=== PATIENT | female | born 1990 | race Caucasian/White ===

== ENCOUNTER → 2019-08-15 | Outpatient (CLI) | payer OTHER ==
--- NOTE | 2019-08-15 15:13 | XR ---
EXAMINATION TYPE: XR lumbar spine 2 or 3V DATE OF EXAM: 08/15/2019 CLINICAL HISTORY: Chronic low back pain TECHNIQUE: Frontal and lateral images of the lumbar spine are obtained. COMPARISON: None FINDINGS: There are 5 lumbar type vertebral bodies identified. The lumbar spine shows satisfactory alignment without evidence of acute fracture or dislocation. Vertebral body heights and disk space he ights are within normal limits. The overlying soft tissue appears unremarkable. IMPRESSION: No acute fracture or malalignment is seen in the lumbar spine. No significant degenerati ve change on x-ray. If there is further concern MRI could evaluate for disc herniation.
== END | disposition home or self-care (01) ==
LOC: RADXRMAIN 14:38
PROVIDERS: ATTEND Family Medicine
DX: M54.5 Low back pain (principal)
CPT/HCPCS: 72100

== ENCOUNTER 2023-09-11 19:49 | Inpatient (IN) | payer OTHER ==
[2023-09-11] MEDS ORDERED: SODIUM CHLORIDE 0.9% 1,000 ML IV STA (21:19)
[2023-09-11] MEDS ORDERED: KETOROLAC 15 MG/ML 1 ML VIAL IVP STA (21:19)
[2023-09-11] MEDS ORDERED: ONDANSETRON 4 MG/2 ML VIAL IVP STA (21:19)
--- NOTE | 2023-09-11 21:24 | ED ---
Abdominal Pain HPI - General Chief Complaint: Abdominal Pain Stated Complaint: Abd pain Time Seen by Provider: 09/11/23 20:32 Source: patient Mode of arrival: ambulatory Limitations: no limitations - History of Present Illness Initial Comments: 33-year-old female with no prior abdominal surgeries presents to ED with a chief complaint of abdominal pain. Patient states she was returning from vacation today and states that she started to experience abdominal pain while she was riding in the car. Pain affects her left lower abdomen. Pain is constant n ature. Patient states since onset of pain has worsened in severity. Associated nausea no vomiting. Patient does note some vaginal bleeding however states that she is on her period and is supposed to be on her period at this time. Denies vaginal discharge. Otherwise changes in bowel habits. No chest pain or shortness of breath. No other complaints. - Related Data Allergies Allergy/AdvReac Type Severity Reaction Status Date / Time No Known Allergies Allergy Verified 09/11/23 20:21 Review of Systems ROS Statement: Those systems with pertinent positive or pertinent negative responses have been documented in the HPI. ROS Other: All systems not noted in ROS Statement are negative. Past Medical History Past Medical History: No Reported History History of Any Multi-Drug Resistant Organisms: None Reported Past Surgical History: No Surgical Hx Reported Past Psychological History: No Psychological Hx Reported Smoking Status: Current every day smoker Past Alcohol Use History: None Reported Past Drug Use History: None Reported General Exam Limitations: no limitations General appearance: alert, in no apparent distress Eye exam: Present: normal appearance Neck exam: Present: normal inspection Respiratory exam: Present: normal lung sounds bilaterally Cardiovascular Exam: Present: regular rate, normal rhythm GI/Abdominal exam: Present: soft (Left CVA tenderness to percussion. Left lower quadrant tenderness. However no rebound guarding or rigidity.), normal bowel sounds Neurological exam: Present: alert, oriented X3 Skin exam: Present: warm, dry Course Vital Signs 09/11/23 20:18 Temperature 97.8 F Pulse Rate 82 Respiratory 18 Rate Blood Pressure 112/74 O2 Sat by Pulse 99 Oximetry Medical Decision Making - Medical Decision Making Was pt. sent in by a medical professional or institution (, PA, SOLAR PV INSTALLER, urgent care, hospital, or fpc...) When possible be specific @ -No Did you speak to anyone other than the patient for history (EMS, parent, family, police, friend...)? What history was obtained from this source @ -No Did you review nursing and triage notes (agree or disagree)? Why? @ -I reviewed and agree with nursing and triage notes Were old charts reviewed (outside hosp., previous admission, EMS record, old EKG, old radiological studies, urgent care reports/EKG's, fpc records)? Report findings @ -No old charts were reviewed Differential Diagnosis (chest pain, altered mental status, abdominal pain women, abdominal pain men, vaginal bleeding, weakness, fever, dyspnea, syncope, headache, dizziness, GI bleed, back pain, seizure, CVA, palpatations, mental health, musculoskeletal)? @ -Differential Abdominal Pain Women: Appendicitis, Cholecystitis, diverticulosis, ischemic bowel, pancreatitis, hepatitis, UTI, gastroenteritis, AAA, incarcerated hernia, bowel obstruction, constipation, inflammatory bowel, hepatitis, peptic ulcer disease, splenic infarction, perforated viscus, vulvitis, ovarian torsion, PID, kidney stone, placenta abruption, this is not meant to be an all-inclusive list EKG interpreted by me (3pts min.). @ -EKG interpreted by me shows a sinus rhythm without acute ST or T-wave changes. CA 135, QRS 84, QT/QTc 376/88. X-rays interpreted by me (1pt min.). @ -None done CT interpreted by me (1pt min.). @ -CT abdomen and pelvis interpreted by me shows mild left hydronephrosis due to a 7 mm stone in the proximal left ureter just beyond the UPJ U/S interpreted by me (1pt. min.). @ -None done What testing was considered but not performed or refused? (CT, X-rays, U/S, labs)? Why? @ -None What meds were considered but not given or refused? Why? @ -None Did you discuss the management of the patient with other professionals (professionals i.e. , PA, SOLAR PV INSTALLER, lab, RT, psych nurse, oncology social work, biblical languages professor, teacher, hydrographical technical officer, caseworker)? Give summary @ -Case discussed with Dr. Mosher, who at this time recommends admission. Was smoking cessation discussed for >3mins.? @ -No Was critical care preformed (if so, how long)? @ -No Were there social determinants of health that impacted care today? How? (Homelessness, low income, unemployed, alcoholism, drug addiction, transportation, low edu. Level, literacy, decrease access to med. care, long term, rehab)? @ -No Was there de-escalation of care discussed even if they declined (Discuss DNR or withdrawal of care, Hospice)? DNR status @ -No What co-morbidities impacted this encounter? (DM, HTN, Smoking, COPD, CAD, Cancer, CVA, ARF, Chemo, Hep., AIDS, mental health diagnosis, sleep apnea, morbi d obesity)? @ -None Was patient admitted / discharged? Hospital course, mention meds given and route, prescriptions, significant lab abnormalities, going to OR and other pertinent info. @ -Admission 33-year-old female presenting with 1 day history of abdominal pain and nausea and vomiting. Patient does note history of urinary tract infection earlier in the week and was prescribed Macrobid however notes that she did not take this medication as they made her feel sick. Laboratory studies reviewed significant for an elevated white blood cell count at 22.4, neutrophils elevated at 20, chemistry panel largely unremarkable, UA does show signs of infection with positive nitrites and leukocyte esterase. CT abdomen pelvis did show a 7 mm s tone in the proximal left ureter. Due to concern for stone with elements of urinary tract infection, patient admitted for observation. At this time, patient reports pain is only a 2 out of 10 in severity. Also notes resolution of nausea. Vital signs stable, afebrile upon admission. Undiagnosed new problem with uncertain prognosis? @ [N] Drug Therapy requiring intensive monitoring for toxicity (Heparin, Nitro, Insulin, Cardizem)? @ [N] Were any procedures done? @ [N] Diagnosis/symptom? @ -Obstructive kidney stone, urinary tract infection Acute, or Chronic, or Acute on Chronic? @ -Acute Uncomplicated (without systemic symptoms) or Complicated (systemic symptoms)? @ -Uncomplicated Side effects of treatment? @ -No Exacerbation, Progression, or Severe Exacerbation? @ -No Poses a threat to life or bodily function? How? (Chest pain, [place], [place], pneumonia, PE, COPD, DKA, ARF, appy, cholecystitis, CVA, Diverticulitis, Homicidal, Suicidal, threat to staff... and all critical care pts) @ -Possibly, sepsis - Lab Data Result diagrams: 09/11/23 21:22 11/26/23 21:22 Lab Results 09/11/23 09/11/23 09/11/23 Range/Units 21:22 21:22 21:22 WBC 22.4 H (3.8-10.6) k/uL RBC 4.70 (3.80-5.40) m/uL Hgb 14.7 (11.4-16.0) gm/dL Hct 44.2 (34.0-46.0) % MCV 93.9 (80.0-100.0) fL MCH 31.3 (25.0-35.0) pg MCHC 33.3 (31.0-37.0) g/dL RDW 12.6 (11.5-15.5) % Plt Count 259 (150-450) k/uL MPV 7.6 Neutrophils % 89 % Lymphocytes % 7 % Monocytes % 3 % Eosinophils % 1 % Basophils % 0 % Neutrophils # 20.0 H (1.3-7.7) k/uL Lymphocytes # 1.5 (1.0-4.8) k/uL Monocytes # 0.7 (0-1.0) k/uL Eosinophils # 0.1 (0-0.7) k/uL Basophils # 0.0 (0-0.2) k/uL PT 11.1 (10.0-12.5) sec INR 1.0 (<1.2) APTT 28.6 (22.0-30.0) sec Sodium (137-145) mmol/L Potassium (3.5-5.1) mmol/L Chloride (98-107) mmol/L Carbon Dioxide (22-30) mmol/L Anion Gap mmol/L BUN (7-17) mg/dL Creatinine (0.52-1.04) mg/dL Est GFR (CKD-EPI)AfAm (>60 ml/min/1.73 sqM) Est GFR (CKD-EPI)NonAf (>60 ml/min/1.73 sqM) Glucose (74-99) mg/dL Plasma Lactic Acid Wale (0.7-2.0) mmol/L Calcium (8.4-10.2) mg/dL Total Bilirubin (0.2-1.3) mg/dL AST (14-36) U/L ALT (4-34) U/L Alkaline Phosphatase (38-126) U/L Troponin I (0.000-0.034) ng/mL Total Protein (6.3-8.2) g/dL Albumin (3.5-5.0) g/dL Amylase (30-110) U/L Lipase (23-300) U/L Urine Color Yellow Urine Appearance Cloudy H (Clear) Urine pH 6.5 (5.0-8.0) Ur Specific [place] 1.020 (1.001-1.035) Urine Protein Negative (Negative) Urine Glucose (UA) Negative (Negative) Urine Ketones Negative (Negative) Urine Blood Large H (Negative) Urine Nitrite Positive H (Negative) Urine Bilirubin Negative (Negative) Urine Urobilinogen <2.0 (<2.0) mg/dL Ur Leukocyte Esterase Small H (Negative) Urine RBC 170 H (0-5) /hpf Urine WBC 14 H (0-5) /hpf Ur Squamous Epith Cells 1 (0-4) /hpf Urine Bacteria Rare H (None) /hpf Urine Mucus Rare H (None) /hpf Urine HCG, Qual (Not Detectd) Blood Type Blood Type Recheck Bld Type Recheck Status Antibody Screen Spec Expiration Date 09/11/23 09/11/23 09/11/23 Range/Units 21:22 21:22 21:22 WBC (3.8-10.6) k/uL RBC (3.80-5.40) m/uL Hgb (11.4-16.0) gm/dL Hct (34.0-46.0) % MCV (80.0-100.0) fL MCH (25.0-35.0) pg MCHC (31.0-37.0) g/dL RDW (11.5-15.5) % Plt Count (150-450) k/uL MPV Neutrophils % % Lymphocytes % % Monocytes % % Eosinophils % % Basophils % % Neutrophils # (1.3-7.7) k/uL Lymphocytes # (1.0-4.8) k/uL Monocytes # (0-1.0) k/uL Eosinophils # (0-0.7) k/uL Basophils # (0-0.2) k/uL PT (10.0-12.5) sec INR (<1.2) APTT (22.0-30.0) sec Sodium 136 L (137-145) mmol/L Potassium 4.1 (3.5-5.1) mmol/L Chloride 101 (98-107) mmol/L Carbon Dioxide 22 (22-30) mmol/L Anion Gap 13 mmol/L BUN 15 (7-17) mg/dL Creatinine 0.73 (0.52-1.04) mg/dL Est GFR (CKD-EPI)AfAm >90 (>60 ml/min/1.73 sqM) Est GFR (CKD-EPI)NonAf >90 (>60 ml/min/1.73 sqM) Glucose 112 H (74-99) mg/dL Plasma Lactic Acid Wale 1.0 (0.7-2.0) mmol/L Calcium 9.7 (8.4-10.2) mg/dL Total Bilirubin 0.9 (0.2-1.3) mg/dL AST 29 (14-36) U/L ALT 19 (4-34) U/L Alkaline Phosphatase 68 (38-126) U/L Troponin I (0.000-0.034) ng/mL Total Protein 7.9 (6.3-8.2) g/dL Albumin 4.5 (3.5-5.0) g/dL Amylase 77 (30-110) U/L Lipase 145 (23-300) U/L Urine Color Urine Appearance (Clear) Urine pH (5.0-8.0) Ur Specific [place] (1.001-1.035) Urine Protein (Negative) Urine Glucose (UA) (Negative) Urine Ketones (Negative) Urine Blood (Negative) Urine Nitrite (Negative) Urine Bilirubin (Negative) Urine Urobilinogen (<2.0) mg/dL Ur Leukocyte Esterase (Negative) Urine RBC (0-5) /hpf Urine WBC (0-5) /hpf Ur Squamous Epith Cells (0-4) /hpf Urine Bacteria (None) /hpf Urine Mucus (None) /hpf Urine HCG, Qual Not Detected (Not Detectd) Blood Type Blood Type Recheck Bld Type Recheck Status Antibody Screen Spec Expiration Date 09/11/23 09/11/23 Range/Units 21:22 21:22 WBC (3.8-10.6) k/uL RBC (3.80-5.40) m/uL Hgb (11.4-16.0) gm/dL Hct (34.0-46.0) % MCV (80.0-100.0) fL MCH (25.0-35.0) pg MCHC (31.0-37.0) g/dL RDW (11.5-15.5) % Plt Count (150-450) k/uL MPV Neutrophils % % Lymphocytes % % Monocytes % % Eosinophils % % Basophils % % Neutrophils # (1.3-7.7) k/uL Lymphocytes # (1.0-4.8) k/uL Monocytes # (0-1.0) k/uL Eosinophils # (0-0.7) k/uL Basophils # (0-0.2) k/uL PT (10.0-12.5) sec INR (<1.2) APTT (22.0-30.0) sec Sodium (137-145) mmol/L Potassium (3.5-5.1) mmol/L Chloride (98-107) mmol/L Carbon Dioxide (22-30) mmol/L Anion Gap mmol/L BUN (7-17) mg/dL Creatinine (0.52-1.04) mg/dL Est GFR (CKD-EPI)AfAm (>60 ml/min/1.73 sqM) Est GFR (CKD-EPI)NonAf (>60 ml/min/1.73 sqM) Glucose (74-99) mg/dL Plasma Lactic Acid Wale (0.7-2.0) mmol/L Calcium (8.4-10.2) mg/dL Total Bilirubin (0.2-1.3) mg/dL AST (14-36) U/L ALT (4-34) U/L Alkaline Phosphatase (38-126) U/L Troponin I <0.012 (0.000-0.034) ng/mL Total Protein (6.3-8.2) g/dL Albumin (3.5-5.0) g/dL Amylase (30-110) U/L Lipase (23-300) U/L Urine Color Urine Appearance (Clear) Urine pH (5.0-8.0) Ur Specific [place] (1.001-1.035) Urine Protein (Negative) Urine Glucose (UA) (Negative) Urine Ketones (Negative) Urine Blood (Negative) Urine Nitrite (Negative) Urine Bilirubin (Negative) Urine Urobilinogen (<2.0) mg/dL Ur Leukocyte Esterase (Negative) Urine RBC (0-5) /hpf Urine WBC (0-5) /hpf Ur Squamous Epith Cells (0-4) /hpf Urine Bacteria (None) /hpf Urine Mucus (None) /hpf Urine HCG, Qual (Not Detectd) Blood Type O Positive Blood Type Recheck O Pos Bld Type Recheck Status No Antibody Screen NEGATIVE Spec Expiration Date 09/14/20232321 - EKG Data EKG Comments: G shows a normal sinus rhythm at [address] or T-wave changes. CA 135, QRS 84, QT/QTc 376/388. Disposition Clinical Impression: Kidney stone Disposition: ADMITTED IP TO THIS [facility] Condition: Fair Referrals: Ricardo June MD [Primary Care Provider] - 1-2 days
[2023-09-11 21:43] LABS: Basophils % (A) 0 %; Eosinophils # (A) 0.1 k/uL (0-0.7); Eosinophils % (A) 1 %; HCT 44.2 % (34.0-46.0); HGB 14.7 gm/dL (11.4-16.0); Lymphocytes # (A) 1.5 k/uL (1.0-4.8); Lymphocytes % (A) 7 %; MCH 31.3 pg (25.0-35.0); MCHC 33.3 g/dL (31.0-37.0); MCV 93.9 fL (80.0-100.0); Mean Platelet Volume 7.6; Monocytes # (A) 0.7 k/uL (0-1.0); Monocytes % (A) 3 %; Neutrophils % (A) 89 %; Platelet Count 259 k/uL (150-450); RDW 12.6 % (11.5-15.5); WBC 22.4 k/uL (3.8-10.6)
[2023-09-11 22:03] LABS: Partial Thromboplastin Time 28.6 sec (22.0-30.0); Prothrombin Time 11.1 sec (10.0-12.5)
[2023-09-11 22:08] LABS: ALT 19 U/L (4-34); AST 29 U/L (14-36); African American GFR (CKD) >90 (>60 ml/min/1.73 sqM); Albumin 4.5 g/dL (3.5-5.0); Alkaline Phosphatase 68 U/L (38-126); Amylase 77 U/L (30-110); Anion Gap 13 mmol/L; Blood Urea Nitrogen 15 mg/dL (7-17); Calcium 9.7 mg/dL (8.4-10.2); Carbon Dioxide 22 mmol/L (22-30); Chloride 101 mmol/L (98-107); Glucose 112 mg/dL (74-99); Lipase 145 U/L (23-300); Non-African American GFR(CKD) >90 (>60 ml/min/1.73 sqM); Potassium 4.1 mmol/L (3.5-5.1); Sodium 136 mmol/L (137-145); Total Bilirubin 0.9 mg/dL (0.2-1.3); Total Protein 7.9 g/dL (6.3-8.2)
[2023-09-11 22:14] LABS: Appearance,Urine Cloudy (Clear); Bacteria,Urine Rare /hpf; Bilirubin,Urine Negative (Negative); Blood,Urine Large (Negative); Color,Urine Yellow; Glucose,Urine (UA) Negative (Negative); Ketones,Urine Negative (Negative); Leukocyte Esterase,Urine Small (Negative); Mucus,Urine Rare /hpf; Nitrite,Urine Positive (Negative); PH, Urine 6.5 (5.0-8.0); Protein,Urine Negative (Negative); RBC,Urine 170 /hpf (0-5); Squamous Epithelial Cell,Urine 1 /hpf (0-4); Urobilinogen,Urine <2.0 mg/dL (<2.0); WBC,Urine 14 /hpf (0-5)
--- NOTE | 2023-09-11 23:09 | CT ---
EXAM: CT Abdomen and Pelvis Without Intravenous Contrast CLINICAL HISTORY: CT Reason: LLQ pain left flank pain TECHNIQUE: Axial computed tomography images of the abdomen and pelvis without intravenous contrast. CTDI is 4.6 mGy and DLP is 244.4 mGy-cm. This CT exam was performed using one or more of the following dose reduction techniques: automated exposure control, adjustment of the mA and/or kV according to patient size, and/or use of iterative reconstruction technique. COMPARISON: No relevant prior studies available. FINDINGS: Lung bases: Unremarkable. No mass. No consolidation. ABDOMEN: Liver: The liver is enlarged measuring 19.2 cm craniocaudad. No focal liver lesion is seen. Gallbladder and bile ducts: Unremarkable. No calcified stones. No ductal dilation. Pancreas: Unremarkable. No ductal dilation. Spleen: Unremarkable. No splenomegaly. Adrenals: Unremarkable. No mass. Kidneys and ureters: Mild left hydronephrosis due to a 7 mm calculus in the proximal left ureter, just beyond the ureteropelvic junction. There are several 3 mm calculi in the lower pole the left kidney. Stomach and bowel: Unremarkable. No obstruction. No mucosal thickening. PELVIS: Appendix: The appendix is normal. Bowel loops are nondilated. No acute inflammatory changes are seen involving the bowel. Bladder: The urinary bladder is empty but otherwise unremarkable. No stones. Reproductive: There is a tampon in the vagina. ABDOMEN and PELVIS: Intraperitoneal space: Unremarkable. No free air. No significant fluid collection. Bones/joints: No acute fracture. No dislocation. Soft tissues: Unremarkable. Vasculature: Unremarkable. No abdominal aortic aneurysm. Lymph nodes: Unremarkable. No enlarged lymph nodes. IMPRESSION: 1. Mild left hydronephrosis due to a 7 mm calculus in the proximal left ureter, just beyond the ureteropelvic junction. 2. The appendix is normal. Bowel loops are nondilated. No acute inflammatory changes are seen involving the bowel.
[2023-09-11] MEDS ORDERED: HYDROmorphone 0.5 MG/0.5 ML SYRINGE IVP PRN (23:54)
[2023-09-11] MEDS ORDERED: HYDROmorphone 1 MG/ML 1 ML SYRINGE IVP PRN (23:54)
[2023-09-11] MEDS ORDERED: NALOXONE 0.4 MG/ML 1 ML VIAL IV PRN (23:54)
[2023-09-12] MEDS: NICOTINE 21MG/24HR PATCH TRANSDERM SCH ×2 (00:23→10:52)
[2023-09-12] MEDS: SODIUM CHLORIDE 0.9% 1,000 ML IV SCH ×2 (01:09→17:30)
--- NOTE | 2023-09-12 07:56 | P.GSHP ---
History of Present Illness H&P Date: 09/12/23 Chief Complaint: Left-sided abdominal pain The patient is a 33-year-old white female with no prior history of urolithiasis. She experienced acute onset of left lower quadrant abdominal pain yesterday, associated with nausea and vomiting. She presented to the ER and underwent evaluation, revealing left hydronephrosis due to a 7 mm left left ureteral calculus just distal to the UPJ. - Constitutional Constitutional: Denies chills, Denies fever - Cardiovascular Cardiovascular: Denies chest pain - Respiratory Respiratory: Denies dyspnea - Gastrointestinal Gastrointestinal: Reports nausea, Reports vomiting - Genitourinary (Female) Genitourinary: Reports flank pain, Reports kidney stones Past Medical History Past Medical History: No Reported History History of Any Multi-Drug Resistant Organisms: None Reported Past Surgical History: No Surgical Hx Reported Past Psychological History: No Psychological Hx Reported Smoking Status: Current every day smoker Past Alcohol Use History: None Reported Past Drug Use History: None Reported Medications and Allergies Allergies Allergy/AdvReac Type Severity Reaction Status Date / Time No Known Allergies Allergy Verified 09/12/23 07:55 Surgical - Exam Vital Signs Temp Pulse Resp BP Pulse Ox 97.8 F 82 18 112/74 99 09/11/23 20:18 09/11/23 20:18 09/11/23 20:18 09/11/23 20:18 09/11/23 20:18 - General well developed, well nourished, moderate distress - Neck no masses, trachea midline - Respiratory normal respiratory effort - Abdomen Abdomen: soft, tender (left-sided tenderness), no guarding, no rigid, no rebound - Psychiatric oriented to time, oriented to person, oriented to place, speech is normal, memory intact Results - Labs 09/11/23 21:22 09/11/23 21:22 Abnormal Lab Results - Last 24 Hours (Table) 09/11/23 09/11/23 09/11/23 Range/Units 21:22 21:22 21:22 WBC 22.4 H (3.8-10.6) k/uL Neutrophils # 20.0 H (1.3-7.7) k/uL Sodium 136 L (137-145) mmol/L Glucose 112 H (74-99) mg/dL Urine Appearance Cloudy H (Clear) Urine Blood Large H (Negative) Urine Nitrite Positive H (Negative) Ur Leukocyte Esterase Small H (Negative) Urine RBC 170 H (0-5) /hpf Urine WBC 14 H (0-5) /hpf Urine Bacteria Rare H (None) /hpf Urine Mucus Rare H (None) /hpf Diabetes panel 09/11/23 Range/Units 21:22 Sodium 136 L (137-145) mmol/L Potassium 4.1 (3.5-5.1) mmol/L Chloride 101 (98-107) mmol/L Carbon Dioxide 22 (22-30) mmol/L BUN 15 (7-17) mg/dL Creatinine 0.73 (0.52-1.04) mg/dL Glucose 112 H (74-99) mg/dL Calcium 9.7 (8.4-10.2) mg/dL AST 29 (14-36) U/L ALT 19 (4-34) U/L Alkaline Phosphatase 68 (38-126) U/L Total Protein 7.9 (6.3-8.2) g/dL Albumin 4.5 (3.5-5.0) g/dL Calcium panel 09/11/23 Range/Units 21:22 Calcium 9.7 (8.4-10.2) mg/dL Albumin 4.5 (3.5-5.0) g/dL Pituitary panel 09/11/23 Range/Units 21:22 Sodium 136 L (137-145) mmol/L Potassium 4.1 (3.5-5.1) mmol/L Chloride 101 (98-107) mmol/L Carbon Dioxide 22 (22-30) mmol/L BUN 15 (7-17) mg/dL Creatinine 0.73 (0.52-1.04) mg/dL Glucose 112 H (74-99) mg/dL Calcium 9.7 (8.4-10.2) mg/dL Adrenal panel 09/11/23 Range/Units 21:22 Sodium 136 L (137-145) mmol/L Potassium 4.1 (3.5-5.1) mmol/L Chloride 101 (98-107) mmol/L Carbon Dioxide 22 (22-30) mmol/L BUN 15 (7-17) mg/dL Creatinine 0.73 (0.52-1.04) mg/dL Glucose 112 H (74-99) mg/dL Calcium 9.7 (8.4-10.2) mg/dL Total Bilirubin 0.9 (0.2-1.3) mg/dL AST 29 (14-36) U/L ALT 19 (4-34) U/L Alkaline Phosphatase 68 (38-126) U/L Total Protein 7.9 (6.3-8.2) g/dL Albumin 4.5 (3.5-5.0) g/dL - Imaging CT scan - abdomen: report reviewed, image reviewed Assessment and Plan Assessment: The patient has significant pain despite analgesics. Urinalysis is suggestive of a possible UTI, and leukocytosis is consistent with this. A urine culture was sent, and she has received Rocephin. (1) Calculus of ureter Current Visit: Yes Status: Acute Code(s): N20.1 - CALCULUS OF URETER SNOMED Code(s): 13494244 (2) Hydronephrosis with renal and ureteral calculous obstruction Current Visit: Yes Status: Acute Code(s): N13.2 - HYDRONEPHROSIS WITH RENAL AND URETERAL CALCULOUS OBSTRUCTION SNOMED Code(s): 503550080 Plan: I had a lengthy discussion with the patient regarding her left proximal ureteral calculus and possible associated UTI. I explained to her that the calculus was rather unlikely to pass, and that placement of a ureteral stent would be desired to relieve ureteral obstruction. She would then undergo a secondary elective p rocedure to remove the calculus, either ESWL or ureteroscopy with laser lithotripsy. The rationale for all of this was discussed in detail, as were potential risks associated with the procedures. She will undergo left ureteral stent insertion later today, and then be scheduled for elective ureteroscopy with laser lithotripsy. Time with Patient: Greater than 30
[2023-09-12] MEDS ORDERED: LACTATED RINGERS 1,000 ML IV ONE ×3 (11:50→13:48)
[2023-09-12] MEDS ORDERED: ONDANSETRON 4 MG/2 ML VIAL ONE (12:25)
[2023-09-12] MEDS ORDERED: diphenhydrAMINE 50 MG/ML 1 ML VIAL ONE (12:25)
[2023-09-12] MEDS ORDERED: ONDANSETRON 4 MG/2 ML VIAL IVP ONE (12:31)
[2023-09-12] MEDS ORDERED: DEXAMETHASONE SOD PHOSPHATE 4 MG/ML 1 ML VIAL IVP ONE (12:31)
[2023-09-12] MEDS ORDERED: diphenhydrAMINE 50 MG/ML 1 ML VIAL IVP ONE (12:31)
[2023-09-12] MEDS ORDERED: KETOROLAC 15 MG/ML 1 ML VIAL ONE (12:42)
[2023-09-12] MEDS ORDERED: PROPOFOL 10 MG/ML 20 ML VIAL IV ONE (12:42)
[2023-09-12] MEDS ORDERED: PHENYLEPHRINE-0.9% NACL SYG 1,000 MCG/10 ML SYRINGE ONE (12:42)
[2023-09-12] MEDS ORDERED: LIDOCAINE 1% INJ 10MG/ML (20 ML MDV) ONE (12:42)
[2023-09-12] MEDS ORDERED: fentaNYL (PF) 50 MCG/ML 2 ML AMP ONE (12:42)
[2023-09-12] MEDS ORDERED: KETOROLAC 15 MG/ML 1 ML VIAL IVP PRN (13:33)
--- NOTE | 2023-09-12 14:06 | FL ---
Intraoperative/procedural fluoroscopic services were provided. Total fluoroscopy time is 1 minute 18 seconds with a total of 4 submitted images to PACS. Please see the operative/procedural note for furt her details. DAP: 3.8804 Gycm2
[2023-09-12] MEDS ORDERED: GENTAMICIN PER PHARMACY MISCELLANE PRN (14:58)
--- NOTE | 2023-09-12 15:54 | P.OP ---
Date of Procedure: 09/12/23 Preoperative Diagnosis: Left hydronephrosis secondary to left proximal ureteral calculus Postoperative Diagnosis: Same Procedure(s) Performed: Cystoscopy, left ureteral stent insertion Anesthesia: CLARENCEA Surgeon: Dav Mosher Estimated Blood Loss (ml): 0 IV fluids (ml): 600 Pathology: none sent Condition: stable Disposition: PACU Indications for Procedure: The patient is a 33-year-old white female with no prior history of urolithiasis. She experienced acute onset of left lower quadrant abdominal pain yesterday, associated with nausea and vomiting. She presented to the ER and underwent evaluation, revealing left hydronephrosis due to a 7 mm left left ureteral calculus just distal to the UPJ. Operative Findings: Obstructing radio-opaque left proximal ureteral calculus. Successful left ureteral stent insertion. Drainage of purulent urine from left renal pelvis (sent for C & S) Description of Procedure: The patient was taken to the operating room and placed in the dorsolithotomy position, with legs supported in Abdullahi stirrups. The external genitalia was prepped and draped sterilely. The 30 lens was used to introduce the 22-Egyptian Stortz cystoscopic sheath through the urethra and into the bladder under direct vision. The bladder was examined in its entirety. Both ureteral orifices were of normal anatomic location and configuration. No tumors or foreign bodies were seen. A 0.035 inch Glidewire was passed through the cystoscope. The left ureteral orifice was cannulated, and the Glidewire was slowly advanced up to the calculus, which was radio opaque and seen within the left proximal ureter. With some manipulation, it was possible to advance the tip of the Glidewire beyond the calculus and into the left renal pelvis, where it coiled. A 22 cm, 6-Egyptian double-J ureteral stent was placed over the wire. Proper stent positioning was verified fluoroscopically and endoscopically. Cloudy urine drained through the stent. With the beak of the cystoscope immediately adjacent to the stent, and urine was collected and sent for culture and sensitivity. The bladder was emptied and the cystoscope removed. The patient tolerated the procedure well was taken to the recovery room in stable condition.
[2023-09-12] MEDS ORDERED: GENTAMICIN 220 MG in SODIUM CHLORIDE 0.9% 100 ML IVPB SCH (16:00)
--- NOTE | 2023-09-12 16:00 | P.CNPUL ---
History of Present Illness Consult date: 09/12/23 Requesting physician: Dav Mosher Reason for consult: other (Critical care management) Chief complaint: Abdominal pain, left lower quadrant History of present illness: This is a very pleasant 33-year-old female patient with no significant medical history. She does have chronic and ongoing tobacco dependence. [place] developed abdominal pain. It was mostly in the left lower quadrant. It was constant in nature. She did have nausea but no vomiting. She presented here to the emergency room for the same. White count 22.4. Hemoglobin 14.7. Sodium 136. Potassium 4.1. BUN 15. Creatinine 0.7. Amylase 77. Lipase 145. Urinalysis was cloudy with large amount of blood and positive nitrates with my WBCs. Urine hCG was negative. Computed tomography scan of the abdomen and pelvis revealed a mild left hydronephrosis due to a 7 mm calculus in the proximal left ureter just be on the ureteropelvic junction. No other significant findings. Today she had undergone a cystoscopy with a left ureteral stent placement. While in phase I of recovery she developed tachycardia and a fever of 101. She is also hypotensive 80s over 40s. She is seen in consultation in the recovery room. She is currently awake and alert in no acute distress. She is maintaining good O2 saturations in the mid 90s on room air. She is feeling weak. She was given ceftriaxone last evening. She is currently receiving a second liter of fluid resuscitation. She has 0.9 normal saline at a 75 ML's per hour. Review of Systems REVIEW OF SYSTEMS: CONSTITUTIONAL: Denies any recent significant weight loss or weight gain. EYES: Denies change in vision. EARS, NOSE, MOUTH, THROAT: Denies headaches, denies sore throat. CARDIOVASCULAR: Denies chest pain, palpitations or syncopal episodes. RESPIRATORY: Denies shortness of breath, cough, congestion or hemoptysis. GASTROINTESTINAL: Positive for left lower quadrant abdominal pain GENITOURINARY: Denies hematuria, denies infections. MUSKULOSKELETAL: Denies pain, denies swelling. INTEGUMENTARY: Denies rash, denies eczema. NEUROLOGICAL: Denies recent memory loss, no recent seizure activity. PSYCHIATRIC: Denies anxiety, denies depression. HEMATOLOGIC/LYMPHATIC: Denies anemia, denies enlarged lymph nodes. Past Medical History Past Medical History: No Reported History History of Any Multi-Drug Resistant Organisms: None Reported Past Surgical History: No Surgical Hx Reported Past Psychological History: No Psychological Hx Reported Smoking Status: Current every day smoker Past Alcohol Use History: None Reported Past Drug Use History: None Reported Medications and Allergies Home Medications Medication Instructions Recorded Confirmed Type Dextroamphetamine/Amphetamine 20 mg PO DAILY 09/12/23 09/12/23 History [Adderall Xr 20 mg Capsule] Allergies Allergy/AdvReac Type Severity Reaction Status Date / Time No Known Allergies Allergy Verified 09/12/23 07:55 Physical Exam Vitals: Vital Signs Temp Pulse Pulse Pulse Resp BP BP 09/12/23 15:15 108 H 16 84/51 09/12/23 15:00 104 H 16 85/52 09/12/23 14:50 101 F H 109 H 16 80/49 09/12/23 14:31 105 H 16 81/52 09/12/23 14:16 98 16 76/50 09/12/23 14:03 97 16 77/53 09/12/23 13:47 92 16 80/52 09/12/23 13:30 100.7 F H 100 16 81/43 09/12/23 11:42 99.8 F H 111 H 18 114/67 09/12/23 11:14 98.7 F 85 16 101/63 09/12/23 10:40 70 16 98/50 09/12/23 08:01 76 16 97/46 09/12/23 02:51 94 19 112/64 09/11/23 20:18 97.8 F 82 18 112/74 Pulse Ox 09/12/23 15:15 96 09/12/23 15:00 96 09/12/23 14:50 96 09/12/23 14:31 92 L 09/12/23 14:16 94 L 09/12/23 14:03 98 09/12/23 13:47 100 09/12/23 13:30 100 09/12/23 11:42 98 09/12/23 11:14 99 09/12/23 10:40 99 09/12/23 08:01 09/12/23 02:51 98 09/11/23 20:18 99 Intake and Output 09/12/23 09/12/23 09/12/23 06:59 14:59 22:59 Intake Total 975 Balance 975 Intake: IV 975 Other: Weight 45.813 kg 45.813 kg GENERAL EXAM: Alert, weak 33-year-old female, thin, on room air, fairly comfortable in no apparent distress. HEAD: Normocephalic. EYES: Normal reaction of pupils, equal size. NOSE: Clear with pink turbinates. THROAT: No erythema or exudates. NECK: No masses, no JVD. CHEST: No chest wall deformity. LUNGS: Equal air entry with no crackles, wheeze, rhonchi or dullness. CVS: S1 and S2 normal with no audible murmur, regular rhythm. ABDOMEN: No hepatosplenomegaly, normal bowel sounds, no guarding or rigidity. SPINE: No scoliosis or deformity SKIN: No rashes CENTRAL NERVOUS SYSTEM: No focal deficits, tone is normal in all 4 extremities. EXTREMITIES: There is no peripheral edema. No clubbing, no cyanosis. Peripheral pulses are intact. Results - Laboratory Findings CBC and BMP: 09/11/23 21:22 09/11/23 21:22 PT/INR, D-dimer PT 11.1 sec (10.0-12.5) 09/11/23 21:22 INR 1.0 (<1.2) 09/11/23 21:22 Abnormal lab findings: Abnormal Labs 09/11/23 09/11/23 09/11/23 21:22 21:22 21:22 WBC 22.4 H Neutrophils # 20.0 H Sodium 136 L Glucose 112 H Urine Appearance Cloudy H Urine Blood Large H Urine Nitrite Positive H Ur Leukocyte Esterase Small H Urine RBC 170 H Urine WBC 14 H Urine Bacteria Rare H Urine Mucus Rare H Assessment and Plan Assessment: Acute left lower quadrant pain secondary to a 7 mm renal calculus with mild hydronephrosis. Status post cystoscopy and stent placement today 09/12/2023 Urinary tract infection secondary to above Sepsis with hypotension secondary to above Chronic and ongoing tobacco dependence Plan: The patient was seen and evaluated Computed tomography scan of the abdomen, labs and medications reviewed Continue with fluid resuscitation Normal saline at 130 ML's per hour Continue gentamicin and ceftriaxone Educated regarding the importance of smoking cessation NicoDerm patch will be offered Monitor closely in the intensive care unit We will continue to follow and make further recommendations based on her c linical status I have personally seen and examined the patient, performed the documentation and the assessment and plan as written. Number of minutes spent on the visit: 20.
[2023-09-12 17:27] LABS: Glucose,Whole Blood 128 mg/dL (70-110)
[2023-09-12] MEDS ORDERED: SODIUM CHLORIDE 0.9% 1,000 ML IV ONE (18:20)
[2023-09-12] MEDS: NOREPINEPHRINE 4 MG in SODIUM CHLORIDE 0.9% 250 ML IV SCH (19:05)
[2023-09-12 20:17] LABS: ALT 16 U/L (4-34); AST 25 U/L (14-36); African American GFR (CKD) 81 (>60 ml/min/1.73 sqM); Albumin 2.2 g/dL (3.5-5.0); Alkaline Phosphatase 45 U/L (38-126); Anion Gap 4 mmol/L; Blood Urea Nitrogen 13 mg/dL (7-17); Calcium 7.3 mg/dL (8.4-10.2); Carbon Dioxide 20 mmol/L (22-30); Chloride 109 mmol/L (98-107); Glucose 113 mg/dL (74-99); Non-African American GFR(CKD) 70 (>60 ml/min/1.73 sqM); Potassium 3.7 mmol/L (3.5-5.1); Sodium 133 mmol/L (137-145); Total Bilirubin 0.9 mg/dL (0.2-1.3); Total Protein 4.5 g/dL (6.3-8.2)
[2023-09-12 20:25] LABS: HCT 35.5 % (34.0-46.0); HGB 11.8 gm/dL (11.4-16.0); MCH 31.5 pg (25.0-35.0); MCHC 33.2 g/dL (31.0-37.0); MCV 94.9 fL (80.0-100.0); Mean Platelet Volume 7.9; Platelet Count 154 k/uL (150-450); RBC 3.74 m/uL (3.80-5.40); RDW 12.9 % (11.5-15.5); WBC 30.7 k/uL (3.8-10.6)
[2023-09-12] MEDS ORDERED: POTASSIUM CHLORIDE ER 20 MEQ TAB.ER PO SCH (22:00)
[2023-09-13 04:26] LABS: Basophils # (A) 0.1 k/uL (0-0.2); Basophils % (A) 0 %; Eosinophils # (A) 0.2 k/uL (0-0.7); Eosinophils % (A) 0 %; HCT 35.9 % (34.0-46.0); Lymphocytes # (A) 1.5 k/uL (1.0-4.8); Lymphocytes % (A) 3 %; MCH 31.7 pg (25.0-35.0); MCHC 33.4 g/dL (31.0-37.0); MCV 94.8 fL (80.0-100.0); Mean Platelet Volume 8.3; Monocytes # (A) 1.6 k/uL (0-1.0); Monocytes % (A) 4 %; Neutrophils # (A) 40.3 k/uL (1.3-7.7); Neutrophils % (A) 92 %; Platelet Count 180 k/uL (150-450); RBC 3.79 m/uL (3.80-5.40); RDW 13.1 % (11.5-15.5); WBC 43.8 k/uL (3.8-10.6)
[2023-09-13 04:42] LABS: African American GFR (CKD) 77 (>60 ml/min/1.73 sqM); Anion Gap 7 mmol/L; Blood Urea Nitrogen 14 mg/dL (7-17); Calcium 7.5 mg/dL (8.4-10.2); Carbon Dioxide 19 mmol/L (22-30); Chloride 110 mmol/L (98-107); Glucose 111 mg/dL (74-99); Magnesium 1.3 mg/dL (1.6-2.3); Non-African American GFR(CKD) 67 (>60 ml/min/1.73 sqM); Potassium 4.1 mmol/L (3.5-5.1); Sodium 136 mmol/L (137-145)
[2023-09-13] MEDS: SODIUM CHLORIDE 0.9% 1,000 ML IV SCH ×4 (05:08→22:07)
[2023-09-13] MEDS: NOREPINEPHRINE 4 MG in SODIUM CHLORIDE 0.9% 250 ML IV SCH ×2 (05:58→19:05)
[2023-09-13] MEDS: MAGNESIUM SULFATE-D5W PMX 1 GM in DEXTROSE/WATER 1 100ML.BAG IVPB SCH ×4 (05:58→14:07)
[2023-09-13] MEDS ORDERED: Magnesium Replacement Protocol 1 EACH MISC MISCELLANE PRN (06:04)
[2023-09-13] MEDS: ACETAMINOPHEN TAB 325 MG TAB PO PRN (07:20)
[2023-09-13] MEDS: PANTOPRAZOLE 40 MG/10 ML VIAL IV SCH (10:16)
[2023-09-13] MEDS: NICOTINE 21MG/24HR PATCH TRANSDERM SCH (10:16)
--- NOTE | 2023-09-13 11:05 | P.PN ---
Subjective Progress Note Date: 09/13/23 This is a very pleasant 33-year-old female patient with no significant medical history. She does have chronic and ongoing tobacco dependence. Yes[place] when she developed abdominal pain. It was mostly in the left lower quadrant. It was constant in nature. She did have nausea but no vomiting. She presented here to the emergency room for the same. White count 22.4. Hemoglobin 14.7. Sodium 136. Potassium 4.1. BUN 15. Creatinine 0.7. Amylase 77. Lipase 145. Urinalysis was cloudy with large amount of blood and positive nitrates with my WBCs. Urine hCG was negative. Computed tomography scan of the abdomen and pelvis revealed a mild left hydronep hrosis due to a 7 mm calculus in the proximal left ureter just be on the ureteropelvic junction. No other significant findings. Today she had undergone a cystoscopy with a left ureteral stent placement. While in phase I of recovery she developed tachycardia and a fever of 101. She is also hypotensive 80s over 40s. She is seen in consultation in the recovery room. She is currently awake and alert in no acute distress. She is maintaining good O2 saturations in the mid 90s on room air. She is feeling weak. She was given ceftriaxone last evening. She is currently receiving a second liter of fluid resuscitation. She has 0.9 normal saline at a 75 ML's per hour. The patient is seen today 09/13/2023 in follow-up in the intensive care unit. She is currently resting in bed. Awake, alert. Maintaining O2 saturations in the mid 90s on room air. Currently afebrile. She is requiring norepinephrine at 7 mcg/m currently. She received 3 L of fluid resuscitation. Currently on 0.9 normal saline at 130 ML's per hour. Urine and blood cultures are positive for gram-negative bacilli. White count 43.8. Hemoglobin 12.0. Platelets 180. Sodium 136. Potassium 4.1. Chloride 110. Bicarb 19. BUN 14. Creatinine 1.10. Glucose 111. Serum cortisol level 18. Gentamicin level 3.5. She is currently on ceftriaxone. NicoDerm patch in place. Objective - Vital Signs Vital signs: Vital Signs Temp 99.5 F 09/13/23 08:00 Pulse 73 09/13/23 10:00 Resp 19 09/13/23 10:00 BP 94/61 09/13/23 10:00 Pulse Ox 95 09/13/23 10:00 FiO2 Intake & Output 09/12/23 09/13/23 09/13/23 18:59 06:59 18:59 Intake Total 1205 2733.619 629.565 Output Total 600 0 Balance 1205 2133.619 629.565 Weight 45.813 kg 52.8 kg Intake: IV 1205 2480 590 Magnesium Sulfate-D5w Pmx 200 1 gm In Dextrose/Water 1 100ml.bag @ 100 mls/hr IVPB Q1H [facility] Rx#: [id number] Sodium Chloride 0.9% 1, 130 2430 390 000 ml @ 130 mls/hr IV . Q7H42M [facility] Rx#:[id number] cefTRIAXone 1 gm In 50 Sodium Chloride 0.9% 50 ml @ 100 mls/hr IVPB Q12HR [facility] Rx#:[id number] Intake, IV Titration 253.619 39.565 Amount Norepinephrine 4 mg In 253.619 39.565 Sodium Chloride 0.9% 250 ml @ 0.03 MCG/KG/MIN 5. 236 mls/hr IV .Q24H [facility] Rx#:[id number] Output: Urine 600 0 Other: Voiding Method Toilet Bedside Commode Bedside Commode # Voids 0 0 - Exam GENERAL EXAM: Alert, weak 33-year-old female, on room air, comfortable in no apparent distress. HEAD: Normocephalic. EYES: Normal reaction of pupils, equal size. NOSE: Clear with pink turbinates. THROAT: No erythema or exudates. NECK: No masses, no JVD. CHEST: No chest wall deformity. LUNGS: Equal air entry with no crackles, wheeze, rhonchi or dullness. CVS: S1 and S2 normal with no audible murmur, regular rhythm. ABDOMEN: No hepatosplenomegaly, normal bowel sounds, no guarding or rigidity. SPINE: No scoliosis or deformity SKIN: No rashes CENTRAL NERVOUS SYSTEM: No focal deficits, tone is normal in all 4 extremities. EXTREMITIES: There is no peripheral edema. No clubbing, no cyanosis. Peripheral pulses are intact. - Labs CBC & Chem 7: 09/13/23 04:04 09/13/23 04:04 Labs: Abnormal Lab Results - Last 24 Hours (Table) 09/12/23 09/12/23 09/12/23 Range/Units 17:26 18:23 19:52 WBC 30.7 H (3.8-10.6) k/uL RBC 3.74 L (3.80-5.40) m/uL Neutrophils # (1.3-7.7) k/uL Monocytes # (0-1.0) k/uL Sodium (137-145) mmol/L Chloride (98-107) mmol/L Carbon Dioxide (22-30) mmol/L Creatinine (0.52-1.04) mg/dL Glucose (74-99) mg/dL POC Glucose (mg/dL) 128 H (70-110) mg/dL Plasma Lactic Acid Wale 2.3 H* (0.7-2.0) mmol/L Calcium (8.4-10.2) mg/dL Magnesium (1.6-2.3) mg/dL Total Protein (6.3-8.2) g/dL Albumin (3.5-5.0) g/dL 09/12/23 09/12/23 09/13/23 Range/Units 19:52 21:47 00:52 WBC (3.8-10.6) k/uL RBC (3.80-5.40) m/uL Neutrophils # (1.3-7.7) k/uL Monocytes # (0-1.0) k/uL Sodium 133 L (137-145) mmol/L Chloride 109 H (98-107) mmol/L Carbon Dioxide 20 L (22-30) mmol/L Creatinine 1.05 H (0.52-1.04) mg/dL Glucose 113 H (74-99) mg/dL POC Glucose (mg/dL) (70-110) mg/dL Plasma Lactic Acid Wale 2.3 H* 2.1 H* (0.7-2.0) mmol/L Calcium 7.3 L (8.4-10.2) mg/dL Magnesium (1.6-2.3) mg/dL Total Protein 4.5 L (6.3-8.2) g/dL Albumin 2.2 L (3.5-5.0) g/dL 09/13/23 09/13/23 Range/Units 04:04 04:04 WBC 43.8 H (3.8-10.6) k/uL RBC 3.79 L (3.80-5.40) m/uL Neutrophils # 40.3 H (1.3-7.7) k/uL Monocytes # 1.6 H (0-1.0) k/uL Sodium 136 L (137-145) mmol/L Chloride 110 H (98-107) mmol/L Carbon Dioxide 19 L (22-30) mmol/L Creatinine 1.10 H (0.52-1.04) mg/dL Glucose 111 H (74-99) mg/dL POC Glucose (mg/dL) (70-110) mg/dL Plasma Lactic Acid Wale (0.7-2.0) mmol/L Calcium 7.5 L (8.4-10.2) mg/dL Magnesium 1.3 L (1.6-2.3) mg/dL Total Protein (6.3-8.2) g/dL Albumin (3.5-5.0) g/dL Microbiology - Last 24 Hours (Table) 09/11/23 21:22 Urine Culture - Preliminary Urine,Voided Gram Neg Bacilli 09/12/23 00:02 Blood Culture Gram Stain - Preliminary Blood Blood Culture - Preliminary Gram Neg Bacilli 09/12/23 00:17 Blood Culture Gram Stain - Preliminary Blood Blood Culture - Preliminary Gram Neg Bacilli Assessment and Plan Assessment: Acute left lower quadrant pain secondary to a 7 mm renal calculus with mild hydronephrosis. Status post cystoscopy and stent placement 09/12/2023 Urinary tract infection secondary gram negative bacilli Bacteremia secondary to gram-negative bacilli Sepsis with hypotension secondary to above requiring pressor support Chronic and ongoing tobacco dependence Plan: The patient was seen and evaluated Labs and medications reviewed Gram-negative bacilli in blood/urine Currently on ceftriaxone Requiring norepinephrine, fluid resuscitation Normal saline at 130 ML's per hour Continue ceftriaxone We will continue to follow I have personally seen and examined the patient, performed the documentation and the assessment and plan as written. Number of minutes spent on the visit: 10.
[2023-09-13] MEDS: HYDROCORTISONE SUCCINATE 100 MG/2 ML VIAL IV SCH ×2 (11:15→17:07)
--- NOTE | 2023-09-13 13:06 | P.CONS ---
History of Present Illness - Reason for Consult Consult date: 09/13/23 - History of Present Illness Patient is a 33-year-old female with history of ADHD presented initially with complaints of abdominal pain. He was mostly limited to her left lower abdomen. It was associated with nausea, no vomiting. CT abdomen and pelvis showed mild left hydronephrosis with 7 mm calculus in the proximal left ureter just beyond UPJ. On initial presentation, patient was afebrile, normotensive, saturating well on room air. Initial labs showed WBC of 22.4, creatinine of 0.73 and lactate of 1, urinalysis showed large blood and large nitrites and small leukocyte esterase. Patient was admitted to urology, and underwent a cystoscopy, left ureteral stent insertion. She became hypotensive, requiring medical ICU admission, currently on vasopressors. She is also bacteremic growing gram-negative bacilli. [facility] has been consulted for medical management. At the moment, the patient denies any significant abdominal pain but does have bilateral low back pain as well as bilateral neck pain. She denies any further nausea or vomiting. Pertinent positives and negatives as discussed in HPI, a complete review of systems was performed and all other systems are negative. Patient seen and examined at bedside. Vital signs reviewed General: nontoxic, no distress, appears at stated age Derm: warm, dry Head: atraumatic, normocephalic, symmetric Eyes: EOMI, no lid lag, anicteric sclera, pupils equal round reactive to light ENT: Nose and ears atraumatic Neck: No thyromegaly, supple Mouth: no lip lesion, mucus membranes moist Cardiovascular: S1S2 reg, no murmur, no edema Lungs: clear to auscultation bilateral, no rhonchi, no rales, no wheeze, no accessory muscle use Abdominal: soft, nontender to palpation, no guarding, no appreciable organomegaly Ext: no gross muscle atrophy, muscle strength muscle strength 5 out of 5 in all 4 extremities, no contractures Neuro: CN II-XII grossly intact Psych: Alert, oriented, appropriate affect Assessment/Plan: Active: Septic shock secondary to urinary tract infection E. coli bacteremia Severe leukocytosis Metabolic acidosis Acute kidney injury Hypomagnesemia -Currently on norepinephrine, continue to wean -Continue IV fluids normal saline 1 30 mL an hour -Continue ceftriaxone 1 g IV every 12 hours -Pending further speciation -Repeat blood cultures -Acidosis, acute kidney injury should improve with IV fluids -ICU note reviewed, patient also on hydrocortisone 50 mg every 6 hours -For pain control, on oral Tylenol as needed, IV Dilaudid as needed -Magnesium 4 g IV ordered -Repeat CBC and BMP and magnesium tomorrow Resolved: Lactic acidosis Thank you for allowing us to participate in the care of this pleasant patient. Do not hesitate to contact us with questions. Someone can be reached from the [facility] hospitalist group all hours of the day at [phone] or via [employer]. Past Medical History Past Medical History: No Reported History History of Any Multi-Drug Resistant Organisms: None Reported Past Surgical History: No Surgical Hx Reported Smoking Status: Current every day smoker Medications and Allergies Home Medications Medication Instructions Recorded Confirmed Type Dextroamphetamine/Amphetamine 20 mg PO DAILY 09/12/23 09/12/23 History [Adderall Xr 20 mg Capsule] Allergies Allergy/AdvReac Type Severity Reaction Status Date / Time No Known Allergies Allergy Verified 09/12/23 07:55 Physical Exam Vitals: Vital Signs Temp Pulse Pulse Resp BP BP Pulse Ox 09/13/23 11:00 68 17 95/65 95 09/13/23 10:45 77 18 94/64 96 09/13/23 10:30 74 7 L 89/56 95 09/13/23 10:15 68 22 95/60 95 09/13/23 10:00 73 19 94/61 95 09/13/23 09:45 72 22 98/63 94 L 09/13/23 09:30 77 16 89/62 94 L 09/13/23 09:15 75 20 90/58 94 L 09/13/23 09:00 73 20 87/57 94 L 09/13/23 08:45 78 14 82/46 95 09/13/23 08:30 95 13 84/50 94 L 09/13/23 08:15 93 23 96/61 92 L 09/13/23 08:00 99.5 F 80 14 96/62 94 L 09/13/23 07:45 80 25 H 95/63 09/13/23 07:30 75 26 H 96/59 09/13/23 07:15 79 25 H 98/66 09/13/23 07:00 79 15 91/64 98 09/13/23 06:45 85 94/53 09/13/23 06:30 93 19 92/61 09/13/23 06:15 84 89/59 09/13/23 06:00 99 F 81 17 96/64 97 09/13/23 05:45 87 88/58 09/13/23 05:30 73 15 97/64 09/13/23 05:15 75 96/62 09/13/23 05:00 71 17 110/70 09/13/23 04:45 80 94/59 09/13/23 04:30 69 97/66 09/13/23 04:15 85 17 105/68 09/13/23 04:00 99.9 F H 17 86/58 98 09/13/23 03:45 71 81/55 09/13/23 03:30 71 15 87/58 09/13/23 03:15 67 87/57 09/13/23 03:00 65 16 72/44 98 09/13/23 02:45 79 14 87/57 09/13/23 02:30 69 16 84/59 09/13/23 02:15 68 16 85/61 09/13/23 02:00 68 15 91/60 09/13/23 01:45 79 17 82/58 09/13/23 01:30 71 16 74/52 09/13/23 01:15 84 18 91/63 09/13/23 01:00 74 15 88/62 09/13/23 00:45 78 16 93/60 09/13/23 00:30 78 14 92/60 09/13/23 00:15 76 14 91/61 09/13/23 00:00 99.2 F 74 17 96/72 09/12/23 23:45 84 15 98/64 09/12/23 23:30 76 16 98/59 09/12/23 23:25 77 15 98/59 09/12/23 23:20 77 15 98/59 09/12/23 23:10 77 17 92/65 09/12/23 23:00 78 16 92/63 09/12/23 22:50 76 13 92/63 09/12/23 22:40 81 17 89/62 09/12/23 22:30 78 16 90/60 09/12/23 22:20 77 15 90/60 09/12/23 22:10 77 14 80/49 09/12/23 22:00 84 13 81/47 09/12/23 21:50 82 14 71/45 09/12/23 21:40 79 12 72/43 09/12/23 21:30 80 15 75/43 09/12/23 21:20 83 15 77/54 09/12/23 21:10 87 14 81/51 09/12/23 21:00 87 10 L 80/54 09/12/23 20:50 87 14 81/51 09/12/23 20:40 88 14 76/54 09/12/23 20:30 89 15 85/59 09/12/23 20:20 90 14 86/56 09/12/23 20:10 93 14 76/56 09/12/23 20:00 99 F 93 4 L 70/42 96 09/12/23 19:50 89 13 70/47 95 09/12/23 19:45 96 17 69/42 96 09/12/23 19:40 91 25 H 64/42 95 09/12/23 19:35 100 23 69/42 95 09/12/23 19:30 91 24 68/40 95 09/12/23 19:15 92 25 H 63/39 96 09/12/23 19:00 96 22 77/55 97 09/12/23 18:45 98 22 77/53 97 09/12/23 18:30 98 27 H 78/55 97 09/12/23 18:15 102 H 24 81/55 97 09/12/23 18:00 103 H 24 81/57 97 09/12/23 17:45 105 H 32 H 86/57 98 09/12/23 17:30 100 F H 106 H 31 H 85/57 97 09/12/23 16:45 112 H 18 84/50 98 09/12/23 16:30 117 H 18 82/53 99 09/12/23 16:15 113 H 16 81/50 98 09/12/23 16:00 123 H 16 79/52 97 09/12/23 15:15 108 H 16 84/51 96 09/12/23 15:00 104 H 16 85/52 96 09/12/23 14:50 101 F H 109 H 16 80/49 96 09/12/23 14:31 105 H 16 81/52 92 L 09/12/23 14:16 98 16 76/50 94 L 09/12/23 14:03 97 16 77/53 98 09/12/23 13:47 92 16 80/52 100 09/12/23 13:30 100.7 F H 100 16 81/43 100 Intake and Output 09/12/23 09/13/23 09/13/23 22:59 06:59 14:59 Intake Total 8195.260 3430.550 729.565 Output Total 300 300 500 Balance 1425.069 938.550 229.565 Intake: IV 1670 1040 690 Magnesium Sulfate-D5w Pmx 300 1 gm In Dextrose/Water 1 100ml.bag @ 100 mls/hr IVPB Q1H [facility] Rx#: [id number] Sodium Chloride 0.9% 1, 1520 1040 390 000 ml @ 130 mls/hr IV . Q7H42M [facility] Rx#:[id number] cefTRIAXone 1 gm In 50 Sodium Chloride 0.9% 50 ml @ 100 mls/hr IVPB Q12HR [facility] Rx#:[id number] Intake, IV Titration 55.069 198.550 39.565 Amount Norepinephrine 4 mg In 55.069 198.550 39.565 Sodium Chloride 0.9% 250 ml @ 0.03 MCG/KG/MIN 5. 236 mls/hr IV .Q24H [facility] Rx#:[id number] Output: Urine 300 300 500 Other: Voiding Method Bedside Commode Bedside Commode Toilet # Voids 1 0 0 Weight 45.813 kg 52.8 kg Results CBC & Chem 7: 09/13/23 04:04 09/13/23 04:04 Labs: Abnormal Lab Results - Last 24 Hours (Table) 09/12/23 09/12/23 09/12/23 Range/Units 17:26 18:23 19:52 WBC 30.7 H (3.8-10.6) k/uL RBC 3.74 L (3.80-5.40) m/uL Neutrophils # (1.3-7.7) k/uL Monocytes # (0-1.0) k/uL Sodium (137-145) mmol/L Chloride (98-107) mmol/L Carbon Dioxide (22-30) mmol/L Creatinine (0.52-1.04) mg/dL Glucose (74-99) mg/dL POC Glucose (mg/dL) 128 H (70-110) mg/dL Plasma Lactic Acid Wale 2.3 H* (0.7-2.0) mmol/L Calcium (8.4-10.2) mg/dL Magnesium (1.6-2.3) mg/dL Total Protein (6.3-8.2) g/dL Albumin (3.5-5.0) g/dL 09/12/23 09/12/23 09/13/23 Range/Units 19:52 21:47 00:52 WBC (3.8-10.6) k/uL RBC (3.80-5.40) m/uL Neutrophils # (1.3-7.7) k/uL Monocytes # (0-1.0) k/uL Sodium 133 L (137-145) mmol/L Chloride 109 H (98-107) mmol/L Carbon Dioxide 20 L (22-30) mmol/L Creatinine 1.05 H (0.52-1.04) mg/dL Glucose 113 H (74-99) mg/dL POC Glucose (mg/dL) (70-110) mg/dL Plasma Lactic Acid Wale 2.3 H* 2.1 H* (0.7-2.0) mmol/L Calcium 7.3 L (8.4-10.2) mg/dL Magnesium (1.6-2.3) mg/dL Total Protein 4.5 L (6.3-8.2) g/dL Albumin 2.2 L (3.5-5.0) g/dL 09/13/23 09/13/23 Range/Units 04:04 04:04 WBC 43.8 H (3.8-10.6) k/uL RBC 3.79 L (3.80-5.40) m/uL Neutrophils # 40.3 H (1.3-7.7) k/uL Monocytes # 1.6 H (0-1.0) k/uL Sodium 136 L (137-145) mmol/L Chloride 110 H (98-107) mmol/L Carbon Dioxide 19 L (22-30) mmol/L Creatinine 1.10 H (0.52-1.04) mg/dL Glucose 111 H (74-99) mg/dL POC Glucose (mg/dL) (70-110) mg/dL Plasma Lactic Acid Wale (0.7-2.0) mmol/L Calcium 7.5 L (8.4-10.2) mg/dL Magnesium 1.3 L (1.6-2.3) mg/dL Total Protein (6.3-8.2) g/dL Albumin (3.5-5.0) g/dL Microbiology - Last 24 Hours (Table) 09/11/23 21:22 Urine Culture - Preliminary Urine,Voided Gram Neg Bacilli 09/12/23 00:02 Blood Culture Gram Stain - Preliminary Blood Blood Culture - Preliminary Gram Neg Bacilli 09/12/23 00:17 Blood Culture Gram Stain - Preliminary Blood Blood Culture - Preliminary Gram Neg Bacilli
[2023-09-13] MEDS ORDERED: MAGNESIUM SULFATE-D5W PMX 1 GM in DEXTROSE/WATER 1 100ML.BAG IVPB SCH (13:15)
--- NOTE | 2023-09-13 15:18 | P.PN ---
Subjective Progress Note Date: 09/13/23 Underwent left-sided stent insertion for a septic stone by Dr. Mosher yesterday. Patient was tachycardic and hypotesive postoperatively. was transferred to the ICU. This a.m. her hemodynamics have improved. Blood and urine cultures growing gram-negative bacilli Objective - Vital Signs Vital signs: Vital Signs Temp 99.5 F 09/13/23 08:00 Pulse 68 09/13/23 14:45 Resp 20 09/13/23 14:45 BP 97/61 09/13/23 14:45 Pulse Ox 95 09/13/23 14:45 FiO2 Intake & Output 09/12/23 09/13/23 09/13/23 18:59 06:59 18:59 Intake Total 1205 2733.619 1305.286 Output Total 600 500 Balance 1205 2133.619 805.286 Weight 45.813 kg 52.8 kg Intake: IV 1205 2480 1080 Magnesium Sulfate-D5w Pmx 300 1 gm In Dextrose/Water 1 100ml.bag @ 100 mls/hr IVPB Q1H [facility] Rx#: [id number] Sodium Chloride 0.9% 1, 130 2430 780 000 ml @ 130 mls/hr IV . Q7H42M [facility] Rx#:[id number] cefTRIAXone 1 gm In 50 Sodium Chloride 0.9% 50 ml @ 100 mls/hr IVPB Q12HR [facility] Rx#:[id number] Intake, IV Titration 253.619 225.286 Amount Norepinephrine 4 mg In 253.619 225.286 Sodium Chloride 0.9% 250 ml @ 0.03 MCG/KG/MIN 5. 236 mls/hr IV .Q24H [facility] Rx#:[id number] Output: Urine 600 500 Other: Voiding Method Toilet Bedside Commode Toilet # Voids 0 0 - Gastrointestinal General gastrointestinal: Present: soft. Absent: distended, tenderness - Psychiatric Psychiatric: Present: A&O x's 3 - Labs CBC & Chem 7: 09/13/23 04:04 09/13/23 04:04 Labs: Abnormal Lab Results - Last 24 Hours (Table) 09/12/23 09/12/23 09/12/23 Range/Units 17:26 18:23 19:52 WBC 30.7 H (3.8-10.6) k/uL RBC 3.74 L (3.80-5.40) m/uL Neutrophils # (1.3-7.7) k/uL Monocytes # (0-1.0) k/uL Sodium (137-145) mmol/L Chloride (98-107) mmol/L Carbon Dioxide (22-30) mmol/L Creatinine (0.52-1.04) mg/dL Glucose (74-99) mg/dL POC Glucose (mg/dL) 128 H (70-110) mg/dL Plasma Lactic Acid Wale 2.3 H* (0.7-2.0) mmol/L Calcium (8.4-10.2) mg/dL Magnesium (1.6-2.3) mg/dL Total Protein (6.3-8.2) g/dL Albumin (3.5-5.0) g/dL 09/12/23 09/12/23 09/13/23 Range/Units 19:52 21:47 00:52 WBC (3.8-10.6) k/uL RBC (3.80-5.40) m/uL Neutrophils # (1.3-7.7) k/uL Monocytes # (0-1.0) k/uL Sodium 133 L (137-145) mmol/L Chloride 109 H (98-107) mmol/L Carbon Dioxide 20 L (22-30) mmol/L Creatinine 1.05 H (0.52-1.04) mg/dL Glucose 113 H (74-99) mg/dL POC Glucose (mg/dL) (70-110) mg/dL Plasma Lactic Acid Wale 2.3 H* 2.1 H* (0.7-2.0) mmol/L Calcium 7.3 L (8.4-10.2) mg/dL Magnesium (1.6-2.3) mg/dL Total Protein 4.5 L (6.3-8.2) g/dL Albumin 2.2 L (3.5-5.0) g/dL 09/13/23 09/13/23 Range/Units 04:04 04:04 WBC 43.8 H (3.8-10.6) k/uL RBC 3.79 L (3.80-5.40) m/uL Neutrophils # 40.3 H (1.3-7.7) k/uL Monocytes # 1.6 H (0-1.0) k/uL Sodium 136 L (137-145) mmol/L Chloride 110 H (98-107) mmol/L Carbon Dioxide 19 L (22-30) mmol/L Creatinine 1.10 H (0.52-1.04) mg/dL Glucose 111 H (74-99) mg/dL POC Glucose (mg/dL) (70-110) mg/dL Plasma Lactic Acid Wale (0.7-2.0) mmol/L Calcium 7.5 L (8.4-10.2) mg/dL Magnesium 1.3 L (1.6-2.3) mg/dL Total Protein (6.3-8.2) g/dL Albumin (3.5-5.0) g/dL Microbiology - Last 24 Hours (Table) 09/11/23 21:22 Urine Culture - Preliminary Urine,Voided Gram Neg Bacilli 09/12/23 00:02 Blood Culture Gram Stain - Preliminary Blood Blood Culture - Preliminary Gram Neg Bacilli 09/12/23 00:17 Blood Culture Gram Stain - Preliminary Blood Blood Culture - Preliminary Gram Neg Bacilli Assessment and Plan Assessment: 33-year-old female with history of a left-sided proximal ureteral stone, patient was septic secondary to her stone. Urine and blood culture growing gram- negative bacilli. Currently in the ICU hemodynamics have improved this morning -We'll keep in the hospital until cultures finalized -Discussed with her that the stent is a temporary measure, and once sepsis has resolves she will need a definitive treatment for her stone and a stent removal.
[2023-09-14] MEDS: HYDROCORTISONE SUCCINATE 100 MG/2 ML VIAL IV SCH ×5 (01:32→23:18)
[2023-09-14 04:54] LABS: HCT 33.5 % (34.0-46.0); HGB 11.3 gm/dL (11.4-16.0); MCH 31.7 pg (25.0-35.0); MCHC 33.7 g/dL (31.0-37.0); MCV 94.2 fL (80.0-100.0); Mean Platelet Volume 8.9; Platelet Count 161 k/uL (150-450); RBC 3.56 m/uL (3.80-5.40); RDW 13.2 % (11.5-15.5); WBC 34.4 k/uL (3.8-10.6)
[2023-09-14] MEDS: ACETAMINOPHEN TAB 325 MG TAB PO PRN (05:09)
[2023-09-14 05:11] LABS: African American GFR (CKD) >90 (>60 ml/min/1.73 sqM); Anion Gap 5 mmol/L; Blood Urea Nitrogen 10 mg/dL (7-17); Calcium 7.7 mg/dL (8.4-10.2); Carbon Dioxide 21 mmol/L (22-30); Chloride 111 mmol/L (98-107); Glucose 122 mg/dL (74-99); Magnesium 2.2 mg/dL (1.6-2.3); Non-African American GFR(CKD) >90 (>60 ml/min/1.73 sqM); Potassium 3.7 mmol/L (3.5-5.1); Sodium 137 mmol/L (137-145)
[2023-09-14] MEDS: SODIUM CHLORIDE 0.9% 1,000 ML IV SCH ×3 (06:12→23:19)
[2023-09-14] MEDS ORDERED: POTASSIUM CHLORIDE ER 20 MEQ TAB.ER PO SCH (08:00)
[2023-09-14] MEDS: NICOTINE 21MG/24HR PATCH TRANSDERM SCH (08:59)
[2023-09-14] MEDS: PANTOPRAZOLE 40 MG/10 ML VIAL IV SCH (08:59)
[2023-09-14 09:08] LABS: Band Neutrophils % 2 %; Lymphocytes # (M) 0.69 k/uL (1.0-4.8); Monocytes # (M) 1.03 k/uL (0-1.0); Neutrophils % (M) 93 %; Nucleated Red Blood Cells 0 /100 WBC (0-0); Total Cells Counted 100
--- NOTE | 2023-09-14 11:42 | P.PN ---
Subjective Progress Note Date: 09/14/23 This is a very pleasant 33-year-old female patient with no significant medical history. She does have chronic and ongoing tobacco dependence. [place] developed abdominal pain. It was mostly in the left lower quadrant. It was constant in nature. She did have nausea but no vomiting. She presented here to the emergency room for the same. White count 22.4. Hemoglobin 14.7. Sodium 136. Potassium 4.1. BUN 15. Creatinine 0.7. Amylase 77. Lipase 145. Urinalysis was cloudy with large amount of blood and positive nitrates with my WBCs. Urine hCG was negative. Computed tomography scan of the abdomen and pelvis revealed a mild left hydronep hrosis due to a 7 mm calculus in the proximal left ureter just be on the ureteropelvic junction. No other significant findings. Today she had undergone a cystoscopy with a left ureteral stent placement. While in phase I of recovery she developed tachycardia and a fever of 101. She is also hypotensive 80s over 40s. She is seen in consultation in the recovery room. She is currently awake and alert in no acute distress. She is maintaining good O2 saturations in the mid 90s on room air. She is feeling weak. She was given ceftriaxone last evening. She is currently receiving a second liter of fluid resuscitation. She has 0.9 normal saline at a 75 ML's per hour. The patient is seen today 09/13/2023 in follow-up in the intensive care unit. She is currently resting in bed. Awake, alert. Maintaining O2 saturations in the mid 90s on room air. Currently afebrile. She is requiring norepinephrine at 7 mcg/m currently. She received 3 L of fluid resuscitation. Currently on 0.9 normal saline at 130 ML's per hour. Urine and blood cultures are positive for gram-negative bacilli. White count 43.8. Hemoglobin 12.0. Platelets 180. Sodium 136. Potassium 4.1. Chloride 110. Bicarb 19. BUN 14. Creatinine 1.10. Glucose 111. Serum cortisol level 18. Gentamicin level 3.5. She is currently on ceftriaxone. NicoDerm patch in place. The patient is seen today 09/14/2023 in follow-up in the intensive care unit. She is awake and alert in no acute distress. Resting in bed. She is maintaining good O2 saturations in the 90s on room air. Blood cultures positive for gram-negative bacilli. Urine culture positive for E. coli. White count 34.4. Hemoglobin 11.3. Sodium 137. Potassium 3.7. Bicarb 21. BUN 10. Creatinine 0.58. Glucose 122. She is continued on ceftriaxone. Currently off the norepinephrine. Remains on normal saline at 130 ML's per hour. Remains on Solu-Cortef. Objective - Vital Signs Vital signs: Vital Signs Temp 98.7 F 09/14/23 08:00 Pulse 73 09/14/23 11:00 Resp 28 H 09/14/23 11:00 BP 104/76 09/14/23 11:00 Pulse Ox 95 09/14/23 11:00 FiO2 Intake & Output 09/13/23 09/14/23 09/14/23 18:59 06:59 18:59 Intake Total 0613.905 7032.552 570 Output Total 1225 1150 200 Balance 629.000 492.552 370 Weight 58.1 kg Intake: IV 1600 1610 570 Magnesium Sulfate-D5w Pmx 300 1 gm In Dextrose/Water 1 100ml.bag @ 100 mls/hr IVPB Q1H [facility] Rx#: [id number] Sodium Chloride 0.9% 1, 1300 1560 520 000 ml @ 130 mls/hr IV . Q7H42M [facility] Rx#:[id number] cefTRIAXone 1 gm In 50 50 Sodium Chloride 0.9% 50 ml @ 100 mls/hr IVPB Q12HR [facility] Rx#:[id number] Intake, IV Titration 254.000 32.552 Amount Norepinephrine 4 mg In 254.000 32.552 Sodium Chloride 0.9% 250 ml @ 0.03 MCG/KG/MIN 5. 236 mls/hr IV .Q24H [facility] Rx#:[id number] Output: Urine 1225 1150 200 Other: Voiding Method Toilet Toilet Toilet # Voids 0 0 - Exam GENERAL EXAM: Alert, pleasant 33-year-old female, comfortable in no apparent distress. HEAD: Normocephalic. EYES: Normal reaction of pupils, equal size. NOSE: Clear with pink turbinates. THROAT: No erythema or exudates. NECK: No masses, no JVD. CHEST: No chest wall deformity. LUNGS: Equal air entry with no crackles, wheeze, rhonchi or dullness. On room air. CVS: S1 and S2 normal with no audible murmur, regular rhythm. ABDOMEN: No hepatosplenomegaly, normal bowel sounds, no guarding or rigidity. SPINE: No scoliosis or deformity SKIN: No rashes CENTRAL NERVOUS SYSTEM: No focal deficits, tone is normal in all 4 extremities. EXTREMITIES: There is no peripheral edema. No clubbing, no cyanosis. Peripheral pulses are intact. - Labs CBC & Chem 7: 09/14/23 04:30 09/14/23 04:30 Labs: Abnormal Lab Results - Last 24 Hours (Table) 09/14/23 09/14/23 Range/Units 04:30 04:30 WBC 34.4 H (3.8-10.6) k/uL RBC 3.56 L (3.80-5.40) m/uL Hgb 11.3 L (11.4-16.0) gm/dL Hct 33.5 L (34.0-46.0) % Neutrophils # (Manual) 32.60 H (1.3-7.7) k/uL Lymphocytes # (Manual) 0.69 L (1.0-4.8) k/uL Monocytes # (Manual) 1.03 H (0-1.0) k/uL Chloride 111 H (98-107) mmol/L Carbon Dioxide 21 L (22-30) mmol/L Glucose 122 H (74-99) mg/dL Calcium 7.7 L (8.4-10.2) mg/dL Microbiology - Last 24 Hours (Table) 09/12/23 13:23 Urine Culture - Preliminary Urine,Voided Gram Neg Bacilli 09/11/23 21:22 Urine Culture - Final Urine,Voided Escherichia coli 09/12/23 00:02 Blood Culture Gram Stain - Preliminary Blood Blood Culture - Preliminary Gram Neg Bacilli 09/12/23 00:17 Blood Culture Gram Stain - Preliminary Blood Blood Culture - Preliminary Gram Neg Bacilli Assessment and Plan Assessment: Acute left lower quadrant pain secondary to a 7 mm renal calculus with mild hydronephrosis. Status post cystoscopy and stent placement 09/12/2023 Urinary tract infection secondary to E. coli Bacteremia secondary to gram-negative bacilli Sepsis with hypotension secondary to above requiring pressor support, recovered Chronic and ongoing tobacco dependence Plan: The patient was seen and evaluated Labs and medications reviewed Gram-negative bacilli in blood/urine Currently on ceftriaxone Off pressors and remains on Solu-Cortef Normal saline at 130 ML's per hour Stable and on room air Could transfer to the regular medical floor We will continue to follow I have personally seen and examined the patient, performed the documentation and the assessment and plan as written. Number of minutes spent on the visit: 10.
--- NOTE | 2023-09-14 12:36 | P.PN ---
Subjective No acute overnight events, she is off pressors now, hemodynamically stable. Urine cultures grown moreno susceptible E. coli. She is not having significant spasms with the stent Objective - Vital Signs Vital signs: Vital Signs Temp 98.7 F 09/14/23 08:00 Pulse 73 09/14/23 11:00 Resp 28 H 09/14/23 11:00 BP 104/76 09/14/23 11:00 Pulse Ox 95 09/14/23 11:00 FiO2 Intake & Output 09/13/23 09/14/23 09/14/23 18:59 06:59 18:59 Intake Total 6283.953 3866.552 570 Output Total 1225 1150 200 Balance 629.000 492.552 370 Weight 58.1 kg Intake: IV 1600 1610 570 Magnesium Sulfate-D5w Pmx 300 1 gm In Dextrose/Water 1 100ml.bag @ 100 mls/hr IVPB Q1H [facility] Rx#: [id number] Sodium Chloride 0.9% 1, 1300 1560 520 000 ml @ 130 mls/hr IV . Q7H42M [facility] Rx#:[id number] cefTRIAXone 1 gm In 50 50 Sodium Chloride 0.9% 50 ml @ 100 mls/hr IVPB Q12HR [facility] Rx#:[id number] Intake, IV Titration 254.000 32.552 Amount Norepinephrine 4 mg In 254.000 32.552 Sodium Chloride 0.9% 250 ml @ 0.03 MCG/KG/MIN 5. 236 mls/hr IV .Q24H [facility] Rx#:[id number] Output: Urine 1225 1150 200 Other: Voiding Method Toilet Toilet Toilet # Voids 0 0 - Constitutional General appearance: Present: no acute distress - Gastrointestinal General gastrointestinal: Present: soft. Absent: distended, tenderness - Psychiatric Psychiatric: Present: A&O x's 3 - Labs CBC & Chem 7: 09/14/23 04:30 09/14/23 04:30 Labs: Abnormal Lab Results - Last 24 Hours (Table) 09/14/23 09/14/23 Range/Units 04:30 04:30 WBC 34.4 H (3.8-10.6) k/uL RBC 3.56 L (3.80-5.40) m/uL Hgb 11.3 L (11.4-16.0) gm/dL Hct 33.5 L (34.0-46.0) % Neutrophils # (Manual) 32.60 H (1.3-7.7) k/uL Lymphocytes # (Manual) 0.69 L (1.0-4.8) k/uL Monocytes # (Manual) 1.03 H (0-1.0) k/uL Chloride 111 H (98-107) mmol/L Carbon Dioxide 21 L (22-30) mmol/L Glucose 122 H (74-99) mg/dL Calcium 7.7 L (8.4-10.2) mg/dL Microbiology - Last 24 Hours (Table) 09/12/23 13:23 Urine Culture - Preliminary Urine,Voided Gram Neg Bacilli 09/11/23 21:22 Urine Culture - Final Urine,Voided Escherichia coli 09/12/23 00:02 Blood Culture Gram Stain - Preliminary Blood Blood Culture - Preliminary Gram Neg Bacilli 09/12/23 00:17 Blood Culture Gram Stain - Preliminary Blood Blood Culture - Preliminary Gram Neg Bacilli Assessment and Plan Assessment: 33-year-old female with history of a left-sided proximal ureteral stone, patient was septic secondary to her stone. Urine cultures growing moreno susceptible E. coli she is on ceftriaxone. Currently in the ICU hemodynamics have improved this morning -continue ceftriaxone -from urology simply she is okay to be transferred out of the ICU -Discussed with her that the stent is a temporary measure, and once sepsis has resolves she will need a definitive treatment for her stone and a stent removal.
--- NOTE | 2023-09-14 14:08 | P.PN ---
Subjective Progress Note Date: 09/14/23 Subjective: Patient seen and examined at bedside. No acute events overnight. She is now off of vasopressors. Denies any complaints. Pertinent positives and negatives as discussed above, a complete review of systems was performed and all other systems are negative. Vitals Signs Reviewed. General: nontoxic, no distress, appears at stated age Derm: warm, dry Head: atraumatic, normocephalic, symmetric Eyes: EOMI, no lid lag, anicteric sclera Mouth: no lip lesion, mucus membranes moist Cardiovascular: S1S2 reg, no murmur Lungs: CTA bilateral, no rhonchi, no rales , no accessory muscle use Abdominal: soft, nontender to palpation, no guarding, no appreciable organomegaly Ext: no gross muscle atrophy, no edema, no contractures Neuro: CN II-XI grossly intact, no focal neuro deficits Psych: Alert, oriented, appropriate affect Data Reviewed Today: Pertinent Labs: WBC 34.4, hemoglobin 11.3, potassium 3.7, bicarb 21, creatinine 0.58, magnesium 2.2 Imaging: No new imaging Assessment and Plan: Patient is critically ill, in ICU, improving. Active: Urinary tract infection E. coli bacteremia Septic shock, resolved Severe leukocytosis Metabolic acidosis, resolving Acute kidney injury, resolved Hypomagnesemia, resolved -Off of vasopressors -Continue IV fluids normal saline 1 30 mL an hour -Continue ceftriaxone 1 g IV every 12 hours -Pansensitive E. coli bacteremia -Repeat blood cultures pending -ICU note reviewed, patient also on hydrocortisone 50 mg every 6 hours -Consider discontinuing hydrocortisone -Urology note reviewed, likely transfer her to the ICU, will need definitive treatment for stone -For pain control, on oral Tylenol as needed, IV Dilaudid as needed, monitor for respiratory depression, IV Toradol as needed -Repeat CBC and BMP and magnesium tomorrow Resolved: Lactic acidosis Thank you for allowing us to participate in the care of this pleasant patient. Do not hesitate to contact us with questions. Someone can be reached from the [facility] hospitalist group all hours of the day at [phone] or via perfect serve. Objective - Vital Signs Vital signs: Vital Signs Temp 98.7 F 09/14/23 08:00 Pulse 73 09/14/23 11:00 Resp 28 H 09/14/23 11:00 BP 104/76 09/14/23 11:00 Pulse Ox 95 09/14/23 11:00 FiO2 Intake & Output 09/13/23 09/14/23 09/14/23 18:59 06:59 18:59 Intake Total 8218.419 5582.552 830 Output Total 1225 1150 400 Balance 629.000 492.552 430 Weight 58.1 kg Intake: IV 1600 1610 830 Magnesium Sulfate-D5w Pmx 300 1 gm In Dextrose/Water 1 100ml.bag @ 100 mls/hr IVPB Q1H [facility] Rx#: [id number] Sodium Chloride 0.9% 1, 1300 1560 780 000 ml @ 130 mls/hr IV . Q7H42M [facility] Rx#:[id number] cefTRIAXone 1 gm In 50 50 Sodium Chloride 0.9% 50 ml @ 100 mls/hr IVPB Q12HR [facility] Rx#:[id number] Intake, IV Titration 254.000 32.552 Amount Norepinephrine 4 mg In 254.000 32.552 Sodium Chloride 0.9% 250 ml @ 0.03 MCG/KG/MIN 5. 236 mls/hr IV .Q24H [facility] Rx#:[id number] Output: Urine 1225 1150 400 Other: Voiding Method Toilet Toilet Toilet # Voids 0 0 # Bowel Movements 1 - Labs CBC & Chem 7: 09/14/23 04:30 09/14/23 04:30 Labs: Abnormal Lab Results - Last 24 Hours (Table) 09/14/23 09/14/23 Range/Units 04:30 04:30 WBC 34.4 H (3.8-10.6) k/uL RBC 3.56 L (3.80-5.40) m/uL Hgb 11.3 L (11.4-16.0) gm/dL Hct 33.5 L (34.0-46.0) % Neutrophils # (Manual) 32.60 H (1.3-7.7) k/uL Lymphocytes # (Manual) 0.69 L (1.0-4.8) k/uL Monocytes # (Manual) 1.03 H (0-1.0) k/uL Chloride 111 H (98-107) mmol/L Carbon Dioxide 21 L (22-30) mmol/L Glucose 122 H (74-99) mg/dL Calcium 7.7 L (8.4-10.2) mg/dL Microbiology - Last 24 Hours (Table) 09/12/23 00:02 Blood Culture Gram Stain - Final Blood Blood Culture - Final Escherichia coli 09/12/23 00:17 Blood Culture Gram Stain - Final Blood Blood Culture - Final Escherichia coli 09/12/23 13:23 Urine Culture - Preliminary Urine,Voided Gram Neg Bacilli 09/11/23 21:22 Urine Culture - Final Urine,Voided Escherichia coli
[2023-09-15] MEDS: SODIUM CHLORIDE 0.9% 1,000 ML IV SCH (05:49)
[2023-09-15] MEDS: HYDROCORTISONE SUCCINATE 100 MG/2 ML VIAL IV SCH (06:22)
[2023-09-15 06:23] LABS: Basophils % (A) 0 %; Eosinophils % (A) 0 %; HCT 35.3 % (34.0-46.0); HGB 11.5 gm/dL (11.4-16.0); Lymphocytes # (A) 1.8 k/uL (1.0-4.8); Lymphocytes % (A) 8 %; MCH 30.9 pg (25.0-35.0); MCHC 32.6 g/dL (31.0-37.0); Mean Platelet Volume 8.7; Monocytes # (A) 0.7 k/uL (0-1.0); Monocytes % (A) 3 %; Neutrophils # (A) 18.9 k/uL (1.3-7.7); Neutrophils % (A) 88 %; Platelet Count 216 k/uL (150-450); RBC 3.72 m/uL (3.80-5.40); RDW 13.3 % (11.5-15.5); WBC 21.6 k/uL (3.8-10.6)
[2023-09-15 06:59] LABS: African American GFR (CKD) >90 (>60 ml/min/1.73 sqM); Anion Gap 7 mmol/L; Blood Urea Nitrogen 11 mg/dL (7-17); Calcium 8.4 mg/dL (8.4-10.2); Carbon Dioxide 22 mmol/L (22-30); Chloride 111 mmol/L (98-107); Glucose 139 mg/dL (74-99); Non-African American GFR(CKD) >90 (>60 ml/min/1.73 sqM); Potassium 4.2 mmol/L (3.5-5.1); Sodium 140 mmol/L (137-145)
[2023-09-15 08:51] VITALS: BP 114/79; PULSE 66; RESP 16; TEMP 98.6
--- NOTE | 2023-09-15 13:58 | P.PN ---
Subjective Progress Note Date: 09/15/23 This is a very pleasant 33-year-old female patient with no significant medical history. She does have chronic and ongoing tobacco dependence. [place] developed abdominal pain. It was mostly in the left lower quadrant. It was constant in nature. She did have nausea but no vomiting. She presented here to the emergency room for the same. White count 22.4. Hemoglobin 14.7. Sodium 136. Potassium 4.1. BUN 15. Creatinine 0.7. Amylase 77. Lipase 145. Urinalysis was cloudy with large amount of blood and positive nitrates with my WBCs. Urine hCG was negative. Computed tomography scan of the abdomen and pelvis revealed a mild left hydronep hrosis due to a 7 mm calculus in the proximal left ureter just be on the ureteropelvic junction. No other significant findings. Today she had undergone a cystoscopy with a left ureteral stent placement. While in phase I of recovery she developed tachycardia and a fever of 101. She is also hypotensive 80s over 40s. She is seen in consultation in the recovery room. She is currently awake and alert in no acute distress. She is maintaining good O2 saturations in the mid 90s on room air. She is feeling weak. She was given ceftriaxone last evening. She is currently receiving a second liter of fluid resuscitation. She has 0.9 normal saline at a 75 ML's per hour. The patient is seen today 09/13/2023 in follow-up in the intensive care unit. She is currently resting in bed. Awake, alert. Maintaining O2 saturations in the mid 90s on room air. Currently afebrile. She is requiring norepinephrine at 7 mcg/m currently. She received 3 L of fluid resuscitation. Currently on 0.9 normal saline at 130 ML's per hour. Urine and blood cultures are positive for gram-negative bacilli. White count 43.8. Hemoglobin 12.0. Platelets 180. Sodium 136. Potassium 4.1. Chloride 110. Bicarb 19. BUN 14. Creatinine 1.10. Glucose 111. Serum cortisol level 18. Gentamicin level 3.5. She is currently on ceftriaxone. NicoDerm patch in place. The patient is seen today 09/14/2023 in follow-up in the intensive care unit. She is awake and alert in no acute distress. Resting in bed. She is maintaining good O2 saturations in the 90s on room air. Blood cultures positive for gram-negative bacilli. Urine culture positive for E. coli. White count 34.4. Hemoglobin 11.3. Sodium 137. Potassium 3.7. Bicarb 21. BUN 10. Creatinine 0.58. Glucose 122. She is continued on ceftriaxone. Currently off the norepinephrine. Remains on normal saline at 130 ML's per hour. Remains on Solu-Cortef. The patient is seen today 09/15/2023 in follow-up in the intensive care unit. She is currently resting comfortably in bed. Awake and alert in no acute distress. Denies any shortness of breath, cough or congestion. Maintaining good O2 saturations in the 90s on room air. Denies any significant abdominal discomfort. She is continued on ceftriaxone. Urine and blood cultures were pos itive for E. coli. Follow-up blood cultures are revealing no growth. White count 21.6. Hemoglobin 11.5. Sodium 140. Potassium 4.2. Bicarb 20. BUN 11. Creatinine 0.62. Glucose 139. Objective - Vital Signs Vital signs: Vital Signs Temp 98.6 F 09/15/23 08:00 Pulse 66 09/15/23 08:00 Resp 16 09/15/23 08:00 BP 114/79 09/15/23 08:00 Pulse Ox 93 L 09/15/23 08:00 FiO2 Intake & Output 09/14/23 09/15/23 09/15/23 18:59 06:59 18:59 Intake Total 1610 310 600 Output Total 800 500 400 Balance 810 -190 200 Intake: IV 1610 310 Sodium Chloride 0.9% 1, 1560 260 000 ml @ 130 mls/hr IV . Q7H42M [facility] Rx#:[id number] cefTRIAXone 1 gm In 50 50 Sodium Chloride 0.9% 50 ml @ 100 mls/hr IVPB Q12HR [facility] Rx#:[id number] Oral 600 Output: Urine 800 500 400 Other: Voiding Method Toilet Toilet Toilet # Voids 0 # Bowel Movements 1 1 - Exam GENERAL EXAM: Alert, pleasant 33-year-old female, stable and on room air, comfortable in no apparent distress. HEAD: Normocephalic. EYES: Normal reaction of pupils, equal size. NOSE: Clear with pink turbinates. THROAT: No erythema or exudates. NECK: No masses, no JVD. CHEST: No chest wall deformity. LUNGS: Equal air entry with no crackles, wheeze, rhonchi or dullness. On room air. CVS: S1 and S2 normal with no audible murmur, regular rhythm. ABDOMEN: No hepatosplenomegaly, normal bowel sounds, no guarding or rigidity. SPINE: No scoliosis or deformity SKIN: No rashes CENTRAL NERVOUS SYSTEM: No focal deficits, tone is normal in all 4 extremities. EXTREMITIES: There is no peripheral edema. No clubbing, no cyanosis. Peripheral pulses are intact. - Labs CBC & Chem 7: 09/15/23 06:00 09/15/23 06:00 Labs: Abnormal Lab Results - Last 24 Hours (Table) 09/15/23 09/15/23 Range/Units 06:00 06:00 WBC 21.6 H (3.8-10.6) k/uL RBC 3.72 L (3.80-5.40) m/uL Neutrophils # 18.9 H (1.3-7.7) k/uL Chloride 111 H (98-107) mmol/L Glucose 139 H (74-99) mg/dL Microbiology - Last 24 Hours (Table) 09/12/23 13:23 Urine Culture - Final Urine,Voided Escherichia coli 09/13/23 13:15 Blood Culture - Preliminary Blood 09/13/23 13:12 Blood Culture - Preliminary Blood 09/12/23 00:02 Blood Culture Gram Stain - Final Blood Blood Culture - Final Escherichia coli 09/12/23 00:17 Blood Culture Gram Stain - Final Blood Blood Culture - Final Escherichia coli Assessment and Plan Assessment: Acute left lower quadrant pain secondary to a 7 mm renal calculus with mild hydronephrosis. Status post cystoscopy and stent placement 09/12/2023 Urinary tract infection secondary to E. coli Bacteremia secondary to gram-negative bacilli Sepsis with hypotension secondary to above requiring pressor support, recovered Chronic and ongoing tobacco dependence Plan: The patient was seen and evaluated Labs and medications reviewed E. coli in blood/urine Currently on ceftriaxone Discontinue Solu-Cortef Stable and on room air Transitioned to oral antibiotics Home once cleared by urology I have personally seen and examined the patient, performed the documentation and the assessment and plan as written. Number of minutes spent on the visit: 10.
--- NOTE | 2023-09-15 14:22 | P.DS ---
Providers Date of admission: 09/11/23 23:55 Expected date of discharge: 09/15/23 Attending physician: Dav Mosher Consults: 09/12/23 14:56 Consult Physician Urgent Consulting Provider: Betito Clayton Consult Reason/Comments: Bacterimia Do you want consulting provider notified?: Already Contacted 09/13/23 07:08 Consult Physician Routine Consulting Provider: Jon Mcknight Consult Reason/Comments: Hospitalist medical management Do you want consulting provider notified?: Yes, Notify in am Primary care physician: Ricardo June MD - Discharge Diagnosis(es) (1) Calculus of ureter Current Visit: No Status: Acute (2) Hydronephrosis with renal and ureteral calculous obstruction Current Visit: No Status: Acute Hospital Course: The patient presented with left-sided abdominal pain, associated with nausea and vomiting. CT scan showed mild left hydronephrosis due to a 7 mm left proximal ureteral calculus. Urinalysis was suggestive of a UTI, and her WBC count was elevated. In view of this, she was started on IV antibiotics and underwent left ureteral stent insertion on 09/12/2023. Cloudy urine drained from the left renal pelvis, and in the recovery room she was noted to be tachycardic and hypotensive, consistent with sepsis. She was transferred to the ICU and treated with fluid resuscitation and vasopressors, in addition to continued IV antibiotics. The WBC count on 09/13/2023 with 43.8. Urine and blood cultures showed pansensitive E. coli. At the time of discharge, she was afebrile and feeling very well. Her WBC count was decreasing, as expected. She was thus discharged home on Keflex, and arrangements will be made for her to undergo left ureteral stent removal, left ureteroscopy with laser lithotripsy in 2-3 weeks. Procedures: Cystoscopy, left ureteral stent insertion on 09/12/2023. Patient Condition at Discharge: Fair Plan - Discharge Summary Discharge Rx Participant: No New Discharge Prescriptions: New Cephalexin [Keflex] 500 mg PO Q8HR 10 Days #30 cap Ketorolac [Toradol] 10 mg PO Q6HR PRN #10 tab PRN Reason: Pain No Action Dextroamphetamine/Amphetamine [Adderall Xr 20 mg Capsule] 20 mg PO DAILY Discharge Medication List Dextroamphetamine/Amphetamine [Adderall Xr 20 mg Capsule] 20 mg PO DAILY 11/2 7/23 [History] Cephalexin [Keflex] 500 mg PO Q8HR 10 Days #30 cap 09/15/23 [Rx] Ketorolac [Toradol] 10 mg PO Q6HR PRN #10 tab 09/15/23 [Rx] Follow up Appointment(s)/Referral(s): Ricardo June MD [Primary Care Provider] - 1-2 days Activity/Diet/Wound Care/Special Instructions: Diet as tolerated. Activity as tolerated. Continue Keflex until completed. Patient will be contacted by Dr. Mosher' office to schedule outpatient surgery (cystoscopy, left ureteral stent removal, left ureteroscopy with laser lithotripsy). Discharge Disposition: HOME SELF-CARE
--- NOTE | 2023-09-15 16:10 | P.PN ---
Subjective Progress Note Date: 09/15/23 (yvette charting seen at approx 1030) Patient is a 33 yo female here with UTI with obstructive stone and sepsis. Patient seen and examined at bedside. She is doing well. No chest pain, SOB, or nausea. No back pain. Doing well and wants to go home. Vital signs reviewed General: nontoxic, no distress, appears at stated age Cardiovascular: S1S2 reg, no murmur, positive posterior tibial pulse bilateral, Lungs: CTA bilateral, no rhonchi, no rales , no accessory muscle use Abdominal: soft, nontender to palpation, no guarding, no appreciable organomegaly Ext: no gross muscle atrophy, no edema b/l lower extremities, no contractures Neuro: CN II-XI grossly intact, no focal neuro deficits Psych: Alert, oriented, appropriate affect Assessment/Plan: E. coli urinary tract infection, present on admission associated with E. coli bacteremia and sepsis Left ureteral calculus resulting in mild left-sided hydronephrosis that is post cystoscopy with left ureteral stent -Sensitivities reviewed. Patient head be discharged home on either Cipro which has been started by intensive care or Keflex to complete a course of 14 days of antibiotics -Patient is aware that she needs to follow-up with urology for stent removal and lithotripsy. -Verbally discussed with patient that she should return to the ER with fevers, confusion, dizziness, worsening back pain. The patient verbalized understanding. - Decreased cortef to 25 mg IVP q 12 hours Septic shock, resolved Metabolic acidosis, resolving Acute kidney injury, resolved Hypomagnesemia, resolved Imaging: None new Data Review: Labs reviewed from today include CBC and basic metabolic profile which are rem arkable for white blood cell count 21.6 (down from 43.8), chloride of 111, and glucose of 139. Repeat blood cultures are negative for 24 hours. DVT prophylaxis: SCDs Thank you for allowing us to participate in the care of this pleasant patient. Do not hesitate to contact us with questions. Someone can be reached from the [facility] hospitalist group all hours of the day at [phone] or via [employer]. This dictation was prepared using [employer] voice recognition software. T merlin every attempt is made to correct errors during dictation some may still exist. Objective - Vital Signs Vital signs: Vital Signs Temp 98.6 F 09/15/23 08:00 Pulse 66 09/15/23 08:00 Resp 16 09/15/23 08:00 BP 114/79 09/15/23 08:00 Pulse Ox 93 L 09/15/23 08:00 FiO2 Intake & Output 09/14/23 09/15/23 09/15/23 18:59 06:59 18:59 Intake Total 1610 310 600 Output Total 800 500 400 Balance 810 -190 200 Intake: IV 1610 310 Sodium Chloride 0.9% 1, 1560 260 000 ml @ 130 mls/hr IV . Q7H42M [facility] Rx#:[id number] cefTRIAXone 1 gm In 50 50 Sodium Chloride 0.9% 50 ml @ 100 mls/hr IVPB Q12HR [facility] Rx#:[id number] Oral 600 Output: Urine 800 500 400 Other: Voiding Method Toilet Toilet Toilet # Voids 0 # Bowel Movements 1 1 - Labs CBC & Chem 7: 09/15/23 06:00 09/15/23 06:00 Labs: Abnormal Lab Results - Last 24 Hours (Table) 09/15/23 09/15/23 Range/Units 06:00 06:00 WBC 21.6 H (3.8-10.6) k/uL RBC 3.72 L (3.80-5.40) m/uL Neutrophils # 18.9 H (1.3-7.7) k/uL Chloride 111 H (98-107) mmol/L Glucose 139 H (74-99) mg/dL Microbiology - Last 24 Hours (Table) 09/12/23 13:23 Urine Culture - Final Urine,Voided Escherichia coli 09/13/23 13:15 Blood Culture - Preliminary Blood 09/13/23 13:12 Blood Culture - Preliminary Blood 09/12/23 00:02 Blood Culture Gram Stain - Final Blood Blood Culture - Final Escherichia coli 09/12/23 00:17 Blood Culture Gram Stain - Final Blood Blood Culture - Final Escherichia coli
[2023-09-15] MEDS ORDERED: CIPROFLOXACIN HCL 500 MG TAB PO SCH (21:00)
[2023-09-15] MEDS ORDERED: HYDROCORTISONE SUCCINATE 100 MG/2 ML VIAL IV SCH (21:00)
== END 2023-09-15 13:53 | disposition home or self-care (01) | DRG 720 ==
LOC: EC 19:49 → 4SSUR 23:55 → 2SICU 09-12 15:26
PROVIDERS: ADMIT Urology; ATTEND Urology
PROC: 3E043XZ Introduction of Vasopressor into Central Vein, Percutaneous Approach (ICD-10-PCS; 2023-09-12)
PROC: 0T778DZ Dilation of Left Ureter with Intraluminal Device, Via Natural or Artificial Opening Endoscopic (ICD-10-PCS; principal; 2023-09-12 20:25)
DX: A41.51 Sepsis due to Escherichia coli [E. coli] (principal); R65.21 Severe sepsis with septic shock; N13.6 Pyonephrosis; E87.20 Acidosis, unspecified; Z28.310 Unvaccinated for COVID-19; Z28.21 Immunization not carried out because of patient refusal; E83.42 Hypomagnesemia; F90.9 Attention-deficit hyperactivity disorder, unspecified type; N17.9 Acute kidney failure, unspecified; F17.210 Nicotine dependence, cigarettes, uncomplicated; Z87.440 Personal history of urinary (tract) infections; M54.2 Cervicalgia; M54.50 Low back pain, unspecified
CPT/HCPCS: 36415; 74176; 80048; 80053; 80170; 81001; 81025; 82150; 82533; 83605; 83690; 83735; 84443; 84484; 85025; 85027; 85610; 85730; 86850; 86900; 86901; 87040; 87077; 87086; 87186; 93005; 96361; 96365; 96375; 96376; 99285

== ENCOUNTER → 2023-09-28 | Outpatient (CLI) | payer OTHER ==
[2023-09-28 15:05] LABS: Basophils # (A) 0.11 X 10*3/uL (0.00-0.10); Basophils % (A) 1.3 %; Eosinophils # (A) 0.08 X 10*3/uL (0.04-0.35); Eosinophils % (A) 0.9 %; HCT 42.9 % (37.2-46.3); HGB 13.6 g/dL (12.0-15.0); Lymphocytes # (A) 3.09 X 10*3/uL (0.90-5.00); Lymphocytes % (A) 35.6 %; MCH 29.7 pg (27.0-32.0); MCHC 31.7 g/dL (32.0-37.0); MCV 93.7 FL (80.0-97.0); Mean Platelet Volume 9.9 FL (9.5-12.2); Monocytes # (A) 1.18 X 10*3/uL (0.20-1.00); Monocytes % (A) 13.6 %; NRBC Per 100 WBC 0 X 10*3/uL (0.00-0.01); Neutrophils # (A) 4.21 X 10*3/uL (1.80-7.70); Neutrophils % (A) 48.4 %; Platelet Count 368 X 10*3/uL (140-440); RBC 4.58 X 10*6/uL (4.10-5.20); RDW 14.1 % (11.5-14.5); WBC 8.69 X 10*3/uL (4.50-10.00)
== END | disposition home or self-care (01) ==
LOC: LABPAT 09:16
PROVIDERS: ATTEND Urology
DX: Z01.812 Encounter for preprocedural laboratory examination (principal); N20.1 Calculus of ureter; R31.29 Other microscopic hematuria
CPT/HCPCS: 85025; 87086

== ENCOUNTER 2023-10-06 07:00 | Day surgery (SDC) | payer OTHER ==
--- NOTE | 2023-10-02 08:38 | P.GSHP ---
History of Present Illness H&P Date: 09/29/23 Chief Complaint: Left-sided abdominal pain The patient is a 33-year-old white female with no prior history of urolithiasis. She recently experienced acute onset of left lower quadrant abdominal pain, associated with nausea and vomiting. She presented to the ER and underwent evaluation, revealing left hydronephrosis due to a 7 mm left left ureteral calculus just distal to the UPJ. Urinalysis was suggestive of a UTI, and her WBC count was elevated. In view of this, she was started on IV antibiotics and underwent left ureteral stent insertion on 09/12/2023. Cloudy urine drained from the left renal pelvis, and in the recovery room she was noted to be tachycardic and hypotensive, consistent with sepsis. She was transferred to the ICU and treated with fluid resuscitation and vasopressors, in addition to continued IV antibiotics. Urine and blood cultures showed pansensitive E. coli. She was discharged home on Keflex, and arrangements will be made for her to undergo left ureteral stent removal, left ureteroscopy with laser lithotripsy. - Constitutional Constitutional: Denies chills, Denies fever - Genitourinary (Female) Genitourinary: Reports flank pain, Reports kidney stones Past Medical History Past Medical History: No Reported History History of Any Multi-Drug Resistant Organisms: None Reported Past Surgical History: No Surgical Hx Reported Smoking Status: Current every day smoker Medications and Allergies Home Medications Medication Instructions Recorded Confirmed Type Dextroamphetamine/Amphetamine 20 mg PO DAILY 09/12/23 09/12/23 History [Adderall Xr 20 mg Capsule] Cephalexin [Keflex] 500 mg PO Q8HR 10 Days #30 cap 09/15/23 Rx Ketorolac [Toradol] 10 mg PO Q6HR PRN #10 tab 09/15/23 Rx Allergies Allergy/AdvReac Type Severity Reaction Status Date / Time No Known Allergies Allergy Verified 09/12/23 07:55 Surgical - Exam - General well developed, well nourished, no distress - Neck no masses, trachea midline - Respiratory normal respiratory effort - Abdomen Abdomen: soft, no masses, no guarding, no rigid, no rebound - Genitourinary normal external genitalia - Psychiatric oriented to time, oriented to person, oriented to place, speech is normal, memor y intact Results - Imaging CT scan - abdomen: report reviewed, image reviewed Assessment and Plan (1) Calculus of ureter Status: Acute Code(s): N20.1 - CALCULUS OF URETER SNOMED Code(s): 22927091 Plan: Cystoscopy, left ureteral stent removal, left ureteroscopy with Holmium laser lithotripsy and possible stone basketing. The procedure has been reviewed in detail with the patient. She has been made aware of potential risks, which include anesthesia, infection, inability to remove the calculus, and ureteral injury.
[2023-10-04 14:03] VITALS: BMI 18.8
[2023-10-06] MEDS ORDERED: HYDROmorphone 0.5 MG/0.5 ML SYRINGE IVP PRN (07:30)
[2023-10-06] MEDS ORDERED: droPERidol 5 MG/2 ML VIAL IVP ONE (07:30)
[2023-10-06] MEDS ORDERED: LACTATED RINGERS 1,000 ML IV SCH (07:30)
[2023-10-06] MEDS ORDERED: LIDOCAINE 1% (10MG/ML) FOR IV START INTRADERMA PRN (07:30)
[2023-10-06] MEDS ORDERED: ONDANSETRON 4 MG/2 ML VIAL IVP PRN (07:30)
[2023-10-06] MEDS ORDERED: DEXAMETHASONE SOD PHOSPHATE 4 MG/ML 1 ML VIAL IV ONE (07:30)
--- NOTE | 2023-10-06 07:34 | XR ---
EXAMINATION TYPE: XR KUB DATE OF EXAM: 10/06/2023 Comparison: 09/11/2023 Clinical History: 33-year-old female N20.1 left ureteral calculus Findings: 5 mm calcification left mid abdomen. A left ureteral stent is in place. Nonobstructive bowel gas santiago elodia. Only mild stool in the right side of the colon. Impression: 5 mm left renal calculus. Left ureteral stent in place. No suspicious calcifications seen along the c ourse of the stent.
[2023-10-06] MEDS ORDERED: LIDOCAINE 1% INJ 10MG/ML (20 ML MDV) ONE (09:19)
[2023-10-06] MEDS ORDERED: ROCURONIUM 10 MG/ML (5 ML VIAL) IV ONE (09:19)
[2023-10-06] MEDS ORDERED: MIDAZOLAM 2 MG/2 ML VIAL ONE (09:19)
[2023-10-06] MEDS ORDERED: NEOSTIGMINE 1 MG/ML 10 ML VIAL ONE (09:19)
[2023-10-06] MEDS ORDERED: KETOROLAC 15 MG/ML 1 ML VIAL ONE (09:19)
[2023-10-06] MEDS ORDERED: GLYCOPYRROLATE 0.2 MG/ML 2 ML VIAL ONE (09:19)
[2023-10-06] MEDS ORDERED: PROPOFOL 10 MG/ML 20 ML VIAL IV ONE (09:19)
[2023-10-06] MEDS ORDERED: PHENYLEPHRINE-0.9% NACL SYG 1,000 MCG/10 ML SYRINGE ONE (09:19)
[2023-10-06] MEDS ORDERED: fentaNYL (PF) 50 MCG/ML 2 ML AMP ONE (09:19)
[2023-10-06 10:53] VITALS: TEMP 97
[2023-10-06 11:19] VITALS: RESP 16
[2023-10-06 11:47] VITALS: BP 95/53; PULSE 58
--- NOTE | 2023-10-06 11:58 | P.OP ---
Date of Procedure: 10/06/23 Preoperative Diagnosis: Left renal calculus Postoperative Diagnosis: Same Procedure(s) Performed: Cystoscopy, left ureteral stent removal, left ureteroscopy with Holmium laser lithotripsy Anesthesia: CLARENCEA Surgeon: Dav Mosher Estimated Blood Loss (ml): 0 IV fluids (ml): 500 Pathology: none sent Condition: stable Disposition: PACU Indications for Procedure: The patient is a 33-year-old white female with no prior history of urolithiasis. She recently experienced acute onset of left lower quadrant abdominal pain, associated with nausea and vomiting. She presented to the ER and underwent evaluation, revealing left hydronephrosis due to a 7 mm left left ureteral calculus just distal to the UPJ. Urinalysis was suggestive of a UTI, and her WBC count was elevated. In view of this, she was started on IV antibiotics and underwent left ureteral stent insertion on 09/12/2023. Cloudy urine drained from the left renal pelvis, and in the recovery room she was noted to be tachycardic and hypotensive, consistent with sepsis. She was transferred to the ICU and treated with fluid resuscitation and vasopressors, in addition to continued IV antibiotics. Urine and blood cultures showed pansensitive E. coli. She was discharged home on Keflex, and arrangements will be made for her to undergo left ureteral stent removal, left ureteroscopy with laser lithotripsy. Operative Findings: Left lower pole renal calculus, dusted completely. Description of Procedure: The patient was taken to the operating room and placed in the dorsolithotomy position, with legs supported in Abdullahi stirrups. The external genitalia was prepped and draped sterilely. The 30 lens was used to introduce the 21-Welsh Woodruff cystoscopic sheath through the urethra and into the bladder under direct vision. The bladder was examined and was unremarkable. Grasping forceps were used to grasp the distal end of the left ureteral stent, which was removed along with the cystoscope. A 0.038 inch Glidewire was passed through the stent and advanced up to the left renal pelvis, where it coiled. The stent was removed, and the Woodruff Cobra Styletra flexible ureteroscope was passed over the wire, up to the left renal pelvis. The calculus was identified within a lower pole calyx. A 1.9-Welsh 0 tip nitinol basket was used to grasp the calculus and reposition it into an upper pole calyx. The 272 micron Holmium laser probe was passed through the ureteroscope, and lithotripsy was performed. The calculus was not at all dense, and a dusting mode was utilized. This was continued until the calculus was completely dusted, with no visible fragments exceeding the size of the laser fiber tip. The calculus was no longer seen on fluoroscopy. The ureteroscope was slowly withdrawn under direct vision. Narrowing of the UPJ was noted. The ureter was otherwise unremarkable, and there was no evidence of ureteral trauma. The patient tolerated the procedure well and was taken to the recovery room in stable condition. [facility] Report: Procedure Acuity: Elective Stone Size and Location: 7 mm, left lower pole Ureteral Dilation: No Ureteral Access Sheath Used: No Stone Sent for Analysis: No All Stones/Fragments Were Removed with a Basket: No Complications: No Preoperative Antibiotics Given: Yes Stent Placed: No Discharge Medications: Keflex
--- NOTE | 2023-10-06 15:18 | FL ---
EXAMINATION TYPE: FL guidance operating room DATE OF EXAM: 10/06/2023 Comparison: None Clinical History: 33-year-old female CYSTO LEFT URETERAL CALCULUS Findings: 6 sec FL .2511 mGycm2 DAP dose Total images: 1 Impression: Urology procedure fluoroscopy as above.
== END 2023-10-06 11:33 | disposition home or self-care (01) ==
LOC: OR 07:00
PROVIDERS: ATTEND Urology
DX: N20.0 Calculus of kidney (principal); F17.200 Nicotine dependence, unspecified, uncomplicated
CPT/HCPCS: 52353; 81025; 74018; C1769; J2250; J1100; J2710; J0690; J2405; J2001; J3010; J1885; J2704; J2371

== ENCOUNTER 2025-03-23 12:32 | Emergency (ER) | payer OTHER ==
[2025-03-23 12:51] VITALS: RESP 16
--- NOTE | 2025-03-23 13:10 | ED ---
General Adult HPI - General Chief complaint: Back Pain/Injury Stated complaint: Back Pain Time Seen by Provider: 03/23/25 12:52 Source: patient, family, RN notes reviewed Mode of arrival: ambulatory Limitations: no limitations - History of Present Illness Initial comments: Patient is a 35-year-old female present to the emergency department with concerns for lower back pain. Onset of symptoms was a couple hours ago while sitting at her desk. Discomfort is somewhat severe. Discomfort feels somewhat like previous kidney stone that patient previously had. No hematuria or dysuria or other urinary symptoms. No abdominal pain. Discomfort is more mid lower back. Patient is unclear if this is worse or not with movement. No incontinence or retention of bowel or bladder. No weakness. - Related Data Home Medications Medication Instructions Recorded Confirmed Dextroamphetamine/Amphetamine 20 mg PO DAILY 09/12/23 10/04/23 [Adderall Xr 20 mg Capsule] Acetaminophen [Tylenol Extra 1,000 mg PO Q8H PRN 10/04/23 10/04/23 Strength] Cephalexin [Keflex] 500 mg PO Q8HR 10/06/23 10/06/23 Previous Rx's Medication Instructions Recorded Cephalexin [Keflex] 500 mg PO QID #28 cap 03/23/25 Ketorolac [Toradol] 10 mg PO Q6HR PRN #15 tab 03/23/25 Metoclopramide [Reglan] 5 mg PO Q6H PRN #12 tab 03/23/25 Allergies Allergy/AdvReac Type Severity Reaction Status Date / Time No Known Allergies Allergy Verified 10/04/23 13:31 Review of Systems ROS Statement: Those systems with pertinent positive or pertinent negative responses have been documented in the HPI. ROS Other: All systems not noted in ROS Statement are negative. Constitutional: Denies: fever Eyes: Denies: eye pain ENT: Denies: ear pain Respiratory: Denies: cough, dyspnea Cardiovascular: Denies: chest pain Endocrine: Denies: fatigue Gastrointestinal: Reports: as per HPI, nausea. Denies: abdominal pain, vomiting Genitourinary: Reports: as per HPI. Denies: dysuria, hematuria Musculoskeletal: Reports: as per HPI, back pain Past Medical History Past Medical History: No Reported History Additional Past Medical History / Comment(s): KIDNEY STONES History of Any Multi-Drug Resistant Organisms: None Reported Past Surgical History: No Surgical Hx Reported Additional Past Surgical History / Comment(s): 09/12/23-LT URETERAL STENT Past Anesthesia/Blood Transfusion Reactions: No Reported Reaction Past Psychological History: No Psychological Hx Reported Smoking Status: Current every day smoker - Past Family History Mother Family Medical History: No Reported History General Exam Limitations: no limitations General appearance: alert, other (Patient hunched over in a near like position on the bed. Patient does not have difficulty moving over to lying her back.) Head exam: Present: normocephalic Eye exam: Present: normal appearance Neck exam: Present: normal inspection Respiratory exam: Present: normal lung sounds bilaterally Cardiovascular Exam: Present: regular rate, normal rhythm Expanded Peripheral pulses: 2+: Posterior Tibialis (R), Posterior Tibialis (L) GI/Abdominal exam: Present: soft. Absent: distended, tenderness, pulsatile mass Extremities exam: Present: normal inspection Back exam: Present: tenderness (Mild tenderness lower lumbar, more midline) Neurological exam: Present: alert. Absent: motor sensory deficit Psychiatric exam: Present: normal affect, normal mood Skin exam: Present: normal color Course Vital Signs 03/23/25 12:49 Temperature 97.6 F Pulse Rate 68 Respiratory 16 Rate Blood Pressure 112/71 O2 Sat by Pulse 98 Oximetry Medical Decision Making - Medical Decision Making Was pt. sent in by a medical professional or institution ([facility] Powell, [employer], urgent care, hospital, or detention...) When possible be specific @ -No Did you speak to anyone other than the patient for history (EMS, parent, family, police, friend...)? What history was obtained from this source @ -Mother is present and provides additional history of history of kidney stones with similar symptoms Did you review nursing and triage notes (agree or disagree)? Why? @ -I reviewed and agree with nursing and triage notes Were old charts reviewed (outside hosp., previous admission, EMS record, old EKG , old radiological studies, urgent care reports/EKG's, detention records)? Report findings @ -No old charts were reviewed Differential Diagnosis (chest pain, altered mental status, abdominal pain women, abdominal pain men, vaginal bleeding, weakness, fever, dyspnea, syncope, headache, dizziness, GI bleed, back pain, seizure, CVA, palpatations, mental health, musculoskeletal)? @ -Differential Back Pain: Strain, zoster, cauda equina syndrome, epidural abscess, vertebral osteomyelitis, discitis, fracture, subluxation, disc herniation, DJD, spinal stenosis, dissection, AAA, pancreatitis, peptic ulcer disease, pyelonephritis, kidney stone, this is not meant to be an all-inclusive list. EKG interpreted by me (3pts min.). @ -As above X-rays interpreted by me (1pt min.). @ -None done CT interpreted by me (1pt min.). @ -CT scan shows kidney stone left UVJ, distal left ureter, and renal stone. Mild hydro U/S interpreted by me (1pt. min.). @ -None done What testing was considered but not performed or refused? (CT, X-rays, U/S, labs)? Why? @ -None What meds were considered but not given or refused? Why? @ -None Did you discuss the management of the patient with other professionals (professionals i.e. , PA, [employer], lab, RT, psych nurse, child welfare social worker, corporate manager, teacher, ambulance officer, leather case finisher)? Give summary @ -No Was smoking cessation discussed for >3mins.? @ -No Was critical care preformed (if so, how long)? @ -No Were there social determinants of health that impacted care today? How? (Homelessness, low income, unemployed, alcoholism, drug addiction, transportation, low edu. Level, literacy, decrease access to med. care, long-term, rehab)? @ -No Was there de-escalation of care discussed even if they declined (Discuss DNR or withdrawal of care, Hospice)? DNR status @ -No What co-morbidities impacted this encounter? (DM, HTN, Smoking, COPD, CAD, Cancer, CVA, ARF, Chemo, Hep., AIDS, mental health diagnosis, sleep apnea, morbid obesity)? @ -None Was patient admitted / discharged? Hospital course, mention meds given and route, prescriptions, significant lab abnormalities, going to OR and other pertinent info. @ -Patient presents with back pain consistent with previous kidney stones. CT scan concerning for stones, see above. Patient reevaluated and significantly improved. Patient and family are updated on results and plan. Undiagnosed new problem with uncertain prognosis? @ -No Drug Therapy requiring intensive monitoring for toxicity (Heparin, Nitro, Insulin, Cardizem)? @ -No Were any procedures done? @ -No Diagnosis/symptom? @ -Ureterolithiasis Acute, or Chronic, or Acute on Chronic? @ -Acute Uncomplicated (without systemic symptoms) or Complicated (systemic symptoms)? @ -Default Side effects of treatment? @ -No Exacerbation, Progression, or Severe Exacerbation? @ -No Poses a threat to life or bodily function? How? (Chest pain, [place], NM, pneumonia, PE, COPD, DKA, ARF, appy, cholecystitis, CVA, Diverticulitis, Homicidal, Suicidal, threat to staff... and all critical care pts) @ -No - Lab Data Result diagrams: 03/23/25 13:36 03/23/25 13:36 Lab Results 03/23/25 03/23/25 03/23/25 Range/Units 13:36 13:36 13:36 WBC 11.32 H (4.50-10.00) 10*3/uL RBC 4.39 (4.10-5.20) 10*6/uL Hgb 13.5 (12.0-15.0) g/dL Hct 39.6 (37.2-46.3) % MCV 90.2 (80.0-97.0) fL MCH 30.8 (27.0-32.0) pg MCHC 34.1 (32.0-37.0) g/dL Plt Count 259 (140-440) 10*3/uL MPV 9.6 (9.5-12.2) fL Immature Gran % (Auto) 0.3 % Neutrophils % 80.8 % Lymphocytes % 12.8 % Monocytes % 5.7 % Eosinophils % 0.1 % Basophils % 0.3 % Immature Gran # 0.03 (0.00-0.04) 10*3/uL Neutrophils # 9.16 H (1.80-7.70) 10*3/uL Lymphocytes # 1.45 (0.90-5.00) 10*3/uL Monocytes # 0.64 (0.20-1.00) 10*3/uL Eosinophils # 0.01 L (0.04-0.35) 10*3/uL Basophils # 0.03 (0.00-0.10) 10*3/uL PT 11.2 (10.0-12.5) sec INR 1.0 (<1.2) APTT 26.7 (22.0-30.0) sec Sodium (137-145) mmol/L Potassium (3.5-5.1) mmol/L Chloride (98-107) mmol/L Carbon Dioxide (22-30) mmol/L Anion Gap mmol/L BUN (7-17) mg/dL Creatinine (0.52-1.04) mg/dL Est GFR (CKD-EPI)AfAm (>60 ml/min/1.73 sqM) Est GFR (CKD-EPI)NonAf (>60 ml/min/1.73 sqM) Glucose (74-99) mg/dL Calcium (8.4-10.2) mg/dL Total Bilirubin (0.2-1.3) mg/dL AST (14-36) U/L ALT (4-34) U/L Alkaline Phosphatase (38-126) U/L Total Protein (6.3-8.2) g/dL Albumin (3.5-5.0) g/dL Amylase (30-110) U/L Lipase (23-300) U/L HCG, Qual Urine Color Yellow Urine Appearance Cloudy H (Clear) Urine pH 8.0 (5.0-8.0) Ur Specific [place] 1.018 (1.001-1.035) Urine Protein Trace H (Negative) Urine Glucose (UA) Negative (Negative) Urine Ketones 1+ H (Negative) Urine Blood Moderate H (Negative) Urine Nitrite Positive H (Negative) Urine Bilirubin Negative (Negative) Urine Urobilinogen <2.0 (<2.0) mg/dL Ur Leukocyte Esterase Moderate H (Negative) Urine RBC >182 H (0-5) /hpf Urine WBC 53 H (0-5) /hpf Ur Squamous Epith Cells 14 H (0-4) /hpf Amorphous Sediment Occasional H (None) /hpf Urine Bacteria Occasional H (None) /hpf Urine Mucus Occasional H (None) /hpf 03/23/25 Range/Units 13:36 WBC (4.50-10.00) 10*3/uL RBC (4.10-5.20) 10*6/uL Hgb (12.0-15.0) g/dL Hct (37.2-46.3) % MCV (80.0-97.0) fL MCH (27.0-32.0) pg MCHC (32.0-37.0) g/dL Plt Count (140-440) 10*3/uL MPV (9.5-12.2) fL Immature Gran % (Auto) % Neutrophils % % Lymphocytes % % Monocytes % % Eosinophils % % Basophils % % Immature Gran # (0.00-0.04) 10*3/uL Neutrophils # (1.80-7.70) 10*3/uL Lymphocytes # (0.90-5.00) 10*3/uL Monocytes # (0.20-1.00) 10*3/uL Eosinophils # (0.04-0.35) 10*3/uL Basophils # (0.00-0.10) 10*3/uL PT (10.0-12.5) sec INR (<1.2) APTT (22.0-30.0) sec Sodium 135 L (137-145) mmol/L Potassium 4.7 (3.5-5.1) mmol/L Chloride 102 (98-107) mmol/L Carbon Dioxide 24 (22-30) mmol/L Anion Gap 9 mmol/L BUN 11 (7-17) mg/dL Creatinine 0.70 (0.52-1.04) mg/dL Est GFR (CKD-EPI)AfAm >90 (>60 ml/min/1.73 sqM) Est GFR (CKD-EPI)NonAf >90 (>60 ml/min/1.73 sqM) Glucose 119 H (74-99) mg/dL Calcium 9.7 (8.4-10.2) mg/dL Total Bilirubin 1.2 (0.2-1.3) mg/dL AST 23 (14-36) U/L ALT 16 (4-34) U/L Alkaline Phosphatase 52 (38-126) U/L Total Protein 7.4 (6.3-8.2) g/dL Albumin 4.5 (3.5-5.0) g/dL Amylase 46 (30-110) U/L Lipase 49 (23-300) U/L HCG, Qual Not Detected Urine Color Urine Appearance (Clear) Urine pH (5.0-8.0) Ur Specific [place] (1.001-1.035) Urine Protein (Negative) Urine Glucose (UA) (Negative) Urine Ketones (Negative) Urine Blood (Negative) Urine Nitrite (Negative) Urine Bilirubin (Negative) Urine Urobilinogen (<2.0) mg/dL Ur Leukocyte Esterase (Negative) Urine RBC (0-5) /hpf Urine WBC (0-5) /hpf Ur Squamous Epith Cells (0-4) /hpf Amorphous Sediment (None) /hpf Urine Bacteria (None) /hpf Urine Mucus (None) /hpf Disposition Clinical Impression: Kidney stone Disposition: HOME SELF-CARE Condition: Stable Instructions (If sedation given, give patient instructions): Kidney Stones (ED) Additional Instructions: Prescription sent to pharmacy. Please do follow-up with primary care physician in the next couple of days for recheck. Please follow-up with urology, number provided. Return for fever, uncontrolled pain or nausea, worsening symptoms or other concerns. Prescriptions: Cephalexin [Keflex] 500 mg PO QID #28 cap Metoclopramide [Reglan] 5 mg PO Q6H PRN #12 tab PRN Reason: Nausea Ketorolac [Toradol] 10 mg PO Q6HR PRN #15 tab PRN Reason: Pain Is patient prescribed a controlled substance at d/c from ED?: No Referrals: Ricardo June DO [Primary Care Provider] - 1-2 days Gucci Cheng MD [STAFF PHYSICIAN] - 1-2 days Time of Disposition: 14:56
[2025-03-23 13:48] LABS: Basophils # (A) 0.03 10*3/uL (0.00-0.10); Basophils % (A) 0.3 %; Eosinophils # (A) 0.01 10*3/uL (0.04-0.35); Eosinophils % (A) 0.1 %; HCT 39.6 % (37.2-46.3); HGB 13.5 g/dL (12.0-15.0); Lymphocytes # (A) 1.45 10*3/uL (0.90-5.00); Lymphocytes % (A) 12.8 %; MCH 30.8 pg (27.0-32.0); MCHC 34.1 g/dL (32.0-37.0); MCV 90.2 fL (80.0-97.0); Mean Platelet Volume 9.6 fL (9.5-12.2); Monocytes # (A) 0.64 10*3/uL (0.20-1.00); Monocytes % (A) 5.7 %; Neutrophils # (A) 9.16 10*3/uL (1.80-7.70); Neutrophils % (A) 80.8 %; Platelet Count 259 10*3/uL (140-440); RBC 4.39 10*6/uL (4.10-5.20); RDW 12.3 % (11.5-14.5); WBC 11.32 10*3/uL (4.50-10.00)
[2025-03-23 13:55] LABS: Amorphous Sediment,Urine Occasional /hpf; Appearance,Urine Cloudy (Clear); Bacteria,Urine Occasional /hpf; Bilirubin,Urine Negative (Negative); Blood,Urine Moderate (Negative); Color,Urine Yellow; Glucose,Urine (UA) Negative (Negative); Ketones,Urine 1+ (Negative); Leukocyte Esterase,Urine Moderate (Negative); Mucus,Urine Occasional /hpf; Nitrite,Urine Positive (Negative); Protein,Urine Trace (Negative); RBC,Urine >182 /hpf (0-5); Specific Gravity,Urine 1.018 (1.001-1.035); Squamous Epithelial Cell,Urine 14 /hpf (0-4); Urobilinogen,Urine <2.0 mg/dL (<2.0); WBC,Urine 53 /hpf (0-5)
[2025-03-23 13:57] LABS: HCG,Qualitative Serum Not Detected
[2025-03-23 14:04] LABS: Glucose 119 mg/dL (74-99); Partial Thromboplastin Time 26.7 sec (22.0-30.0); Prothrombin Time 11.2 sec (10.0-12.5); Sodium 135 mmol/L (137-145)
[2025-03-23 14:05] LABS: ALT 16 U/L (4-34); AST 23 U/L (14-36); African American GFR (CKD) >90 (>60 ml/min/1.73 sqM); Albumin 4.5 g/dL (3.5-5.0); Alkaline Phosphatase 52 U/L (38-126); Amylase 46 U/L (30-110); Anion Gap 9 mmol/L; Blood Urea Nitrogen 11 mg/dL (7-17); Calcium 9.7 mg/dL (8.4-10.2); Carbon Dioxide 24 mmol/L (22-30); Chloride 102 mmol/L (98-107); Lipase 49 U/L (23-300); Non-African American GFR(CKD) >90 (>60 ml/min/1.73 sqM); Potassium 4.7 mmol/L (3.5-5.1); Total Bilirubin 1.2 mg/dL (0.2-1.3); Total Protein 7.4 g/dL (6.3-8.2)
--- NOTE | 2025-03-23 14:43 | CT ---
EXAMINATION TYPE: CT abdomen pelvis wo con CT DLP: 231.9 mGycm, Automated exposure control for dose reduction was used. DATE OF EXAM: 03/23/2025 2:24 PM COMPARISON: CT abdomen pelvis most recent from CLINICAL INDICATION:Female, 35 years old with history of abdominal pain; left flank pain TECHNIQUE: Axial CT abdomen pelvis wo con;Sagittal and coronal reformats were created on a separate workstation. Contrast used: mL of , (none if empty) Oral contrast used: without Oral Contrast (none if empty) FINDINGS: LOWER CHEST: Unremarkable ABDOMEN Lack of intravenous contrast and paucity of intra-abdominal fat limits evaluation. LIVER: Grossly unremarkable GALLBLADDER AND BILE DUCTS: Grossly unremarkable. PANCREAS: Grossly unremarkable. SPLEEN: Grossly unremarkable. ADRENAL GLANDS: Grossly unremarkable. KIDNEYS AND URETERS: There is a 5 mm left renal calculus. Additional calcification seen in the area o f the left mid to distal ureter measuring 4 mm. There is mild to moderate left hydronephrosis. The bi lateral ureters are overall partially visualized. No ureteral stents are appreciated. PELVIS BLADDER: The urinary bladder is distended without wall thickening. There is a calculus seen in the ar ea of the left ureterovesicular junction measuring up to 4 mm. REPRODUCTIVE: Grossly unremarkable. ABDOMEN & PELVIS STOMACH AND BOWEL: Stomach is grossly unremarkable. Small bowel is normal in caliber. Stool and gas i s seen within the large bowel. No evidence of bowel obstruction. PERITONEUM/RETROPERITONEUM: There is trace simple attenuated fluid seen within the pelvis. VASCULATURE: No evidence of aortic aneurysm. MUSCULOSKELETAL: No acute osseous abnormalities LYMPH NODES: No gross evidence for lymphadenopathy. SOFT TISSUE/ABDOMINAL WALL: Unremarkable IMPRESSION: 1. Left mild to moderate hydronephrosis is seen. Left renal calculus measuring up to 5 mm with addit ional suggested calculus seen in the mid to distal left ureter measuring up to 4 mm. There is a calcu jennifer seen in the left ureterovesicular junction measuring up to 4 mm. No ureteral stents is seen on ex am. 2. The remainder the exam is grossly unremarkable however there is limited evaluation due to lack of contrast and paucity of intra-abdominal fat. [facility], , 03/23/2025 2:40 PM
[2025-03-23] MEDS: KETOROLAC 15 MG/ML 1 ML VIAL IVP STA (15:08)
[2025-03-23] MEDS: METOCLOPRAMIDE 5 MG/ML 2 ML VIAL IVP STA (15:08)
[2025-03-23] MEDS: SODIUM CHLORIDE 0.9% 1,000 ML IV SCH (15:08)
[2025-03-23 15:34] VITALS: BP 101/64; PULSE 82; TEMP 98
== END 2025-03-23 15:25 | disposition home or self-care (01) ==
LOC: EC 12:32
DX: N13.2 Hydronephrosis with renal and ureteral calculous obstruction (principal); F17.200 Nicotine dependence, unspecified, uncomplicated
CPT/HCPCS: 36415; 74176; 80053; 81001; 82150; 83690; 84703; 85025; 85610; 85730; 99284